=== PATIENT | female | born 1955 ===

== ENCOUNTER 2017-09-18 08:05 | Inpatient (IN) | payer MEDICAID, OTHER ==
[2017-09-18] MEDS ORDERED: Sodium Chloride 0.9% 1,000 ML IV STA (09:36)
--- NOTE | 2017-09-18 09:42 | CARD ---
APPROVED REPORT EKG Measurement Heart [id number] <Conclusion> Normal sinus rhythm Borderline ECG
--- NOTE | 2017-09-18 09:55 | RAD ---
HISTORY: Abd pain COMPARISON: No prior. TECHNIQUE: Chest PA and lateral FINDINGS: LUNGS: No active pulmonary disease. PLEURA: No significant pleural effusion identified. No pneumothorax apparent. CARDIOVASCULAR: Atherosclerotic aortic calcifications. Cardiomediastinal silhouette prominent. OSSEOUS STRUCTURES: Degenerative changes. VISUALIZED UPPER ABDOMEN: Normal. OTHER FINDINGS: None. IMPRESSION: No active disease.
[2017-09-18 10:01] LABS: BASO % 0.5 % (0.0-2.0); EOS # 0.3 K/uL (0.0-0.7); EOS % 3.6 % (0.0-4.0); HEMOGLOBIN 13.8 g/dL (12.0-16.0); MEAN CELL VOLUME 84.6 fl (81.0-99.0); MEAN CORPUSCULAR HEMOGLOBIN 28.1 pg (27.0-31.0); MEAN CORPUSCULAR HGB CONC 33.2 g/dL (33.0-37.0); MEAN PLATELET VOLUME 9.4 fl (7.2-11.7); MONO # 0.5 K/uL (0.0-0.8); MONO % 5.3 % (0.0-10.0); NEUT # 6.2 K/uL (1.8-7.0); NEUT % 68.6 % (50.0-75.0); RBC 4.92 Mil/uL (3.80-5.20); RED CELL DISTRIBUTION WIDTH 14.9 % (11.5-14.5); WHITE BLOOD COUNT 9.1 K/uL (4.8-10.8)
--- NOTE | 2017-09-18 10:02 | ED PDOC ---
HPI: Abdomen Time Seen by Provider: 09/18/17 09:12 Chief Complaint (Nursing): Abdominal Pain Chief Complaint (Provider): Abdominal Pain History Per: Patient History/Exam Limitations: no limitations Additional Complaint(s): 61 year old female with a past medical history of hypertension who presents to the emergency department with a complaint of an upper abdominal pain that was constant last night but as of now intermittent. Associated with nausea and 2 episodes of vomiting. Denies diarrhea. Of note, patient was seen 22 days ago in this facility, given omeprazole, and said medications did help with the abdominal pain. Past Medical History Reviewed: Historical Data, Nursing Documentation, Vital Signs Vital Signs: Last Vital Signs Temp 98.1 F 09/20/17 08:32 Pulse 63 09/20/17 08:32 Resp 20 09/20/17 08:32 BP 128/74 09/20/17 08:32 Pulse Ox 98 09/20/17 14:10 - Medical History PMH: HTN - Family History Family History: States: Unknown Family Hx - Home Medications Home Medications: Ambulatory Orders Medication Instructions Recorded Losartan [Cozaar] 25 mg PO DAILY 09/18/17 Amoxicillin/Clavulanate [Augmentin 1 tab PO BID #14 tab 09/20/17 875 MG-125 MG] Metronidazole [Flagyl] 500 mg PO TID #21 tablet 09/20/17 Tramadol HCl [Ultram] 50 mg PO Q6 PRN #15 tab 09/20/17 - Allergies Allergies/Adverse Reactions: Allergies Allergy/AdvReac Type Severity Reaction Status Date / Time No Known Allergies Allergy Verified 09/18/17 08:16 Review of Systems ROS Statement: Except As Marked, All Systems Reviewed And Found Negative (As per HPI, otherwise negative) Gastrointestinal: Positive for: Nausea, Vomiting (2 episodes), Abdominal Pain. Negative for: Diarrhea Physical Exam - Reviewed Nursing Documentation Reviewed: Yes Vital Signs Reviewed: Yes - Physical Exam Appears: Positive for: Well, No Acute Distress Head Exam: Positive for: NORMAL INSPECTION Skin: Positive for: Normal Color, Warm, Dry Eye Exam: Positive for: Normal appearance, EOMI, PERRL Cardiovascular/Chest: Positive for: Regular Rate, Rhythm. Negative for: Murmur Respiratory: Positive for: Normal Breath Sounds. Negative for: Accessory Muscle Use, Wheezing, Respiratory Distress Gastrointestinal/Abdominal: Positive for: Bowel Sounds, Soft, Tenderness (Mild epigastric and right epigastric tenderness). Negative for: Normal Exam, Guarding, Rebound Back: Positive for: Normal Inspection. Negative for: L CVA Tenderness, R CVA Tenderness Extremity: Positive for: Normal ROM Neurologic/Psych: Positive for: Alert, manufacturing recruiter II-XII, Oriented (x3) - Laboratory Results Result Diagrams: 09/20/17 05:20 09/20/17 05:20 - ECG O2 Sat by Pulse Oximetry: 98 (RA) Pulse Ox Interpretation: Normal Medical Decision Making Medical Decision Making: Time: 945 Initial Impression: Abdominal pain Initial Plan: CMP Lipase Urine DIP CBC w. diff PTT & Prothrombin Morphine 2 mg IV Sodium Chloride 100 mls/hr IV Zofran 4 mg IV Urinalysis Chest x-ray Abdomen Limited US Reevaluation Time: 953 --Chest x-ray FINDINGS: LUNGS: No active pulmonary disease. PLEURA: No significant pleural effusion identified. No pneumothorax apparent. CARDIOVASCULAR: Atherosclerotic aortic calcifications. Cardiomediastinal silhouette prominent. OSSEOUS STRUCTURES: Degenerative changes. VISUALIZED UPPER ABDOMEN: Normal. OTHER FINDINGS: None. IMPRESSION: No active disease. Time: 1030 --Abd US FINDINGS: LIVER: Measures 16.6 cm in length. Increased echogenicity of the liver parenchyma. No mass. No intrahepatic bile duct dilatation. GALLBLADDER: Cholelithiasis with gallbladder wall thickening/edema. Sonographic Flores's sign was not elicited. COMMON BILE DUCT: Measures 5 mm. No stones. No dilatation. PANCREAS: Unremarkable as visualized. No mass. No ductal dilatation. RIGHT KIDNEY: Measures 10.7 x 5.4 x 4.0 cm in length. Normal echogenicity. No calculus, mass, or hydronephrosis. AORTA: No aneurysmal dilatation. IVC: Unremarkable. OTHER FINDINGS: None . IMPRESSION: Cholelithiasis with gallbladder wall thickening/edema. Sonographic Flores's sign was not elicited. Findings are equivocal for acute cholecystitis. Nuclear medicine HIDA scan can be obtained for further evaluation as clinically warranted. Hepatic steatosis. Time: 1044 --Case discussed with surgical services director --Biliary Scan ordered Time: 1500 --Patient is transferred to Dr. Lyle BECKMAN. --Pending HIDA results and reassessment. Scribe Attestation: Documented by Tamiko Pratt, acting as a scribe for Evi Salvador MD. Provider Scribe Attestation: All medical record entries made by the Scribe were at my direction and personally dictated by me. I have reviewed the chart and agree that the record accurately reflects my personal performance of the history, physical exam, medical decision making, and the department course for this patient. I have also personally directed, reviewed, and agree with the discharge instructions and disposition. Disposition - Clinical Impression Clinical Impression: Acute cholecystitis - Patient ED Disposition Is Patient to be Admitted: No - Disposition Disposition: Transfer of Care (Dr. Alvarenga) Disposition Time: 15:00 Condition: STABLE
[2017-09-18 10:09] LABS: ALT/SGPT 29 U/L (9-52); AST/SGOT 18 U/L (14-36); BLOOD UREA NITROGEN 17 mg/dl (7-17); CALCIUM 9.5 mg/dL (8.4-10.2); GFR AFRICAN-AMERICAN > 60; GFR NON-AFRICAN AMERICAN 50; LIPASE 59 U/L (23-300)
[2017-09-18 10:14] LABS: PARTIAL THROMBOPLASTIN TIME 32.1 Seconds (25.6-37.1); PROTHROMBIN TIME 10.7 Seconds (9.8-13.1)
--- NOTE | 2017-09-18 10:31 | US ---
HISTORY: Epigastric/RUQ pain COMPARISON: None. TECHNIQUE: Sonographic evaluation of the right upper quadrant of the abdomen. FINDINGS: LIVER: Measures 16.6 cm in length. Increased echogenicity of the liver parenchyma. No mass. No intrahepatic bile duct dilatation. GALLBLADDER: Cholelithiasis with gallbladder wall thickening/edema. Sonographic Flores's sign was not elicited. COMMON BILE DUCT: Measures 5 mm. No stones. No dilatation. PANCREAS: Unremarkable as visualized. No mass. No ductal dilatation. RIGHT KIDNEY: Measures 10.7 x 5.4 x 4.0 cm in length. Normal echogenicity. No calculus, mass, or hydronephrosis. AORTA: No aneurysmal dilatation. IVC: Unremarkable. OTHER FINDINGS: None . IMPRESSION: Cholelithiasis with gallbladder wall thickening/edema. Sonographic Flores's sign was not elicited. Findings are equivocal for acute cholecystitis. Nuclear medicine HIDA scan can be obtained for further evaluation as clinically warranted. Hepatic steatosis.
[2017-09-18 11:46] LABS: URINE BILIRUBIN NEGATIVE (NEGATIVE); URINE BLOOD NEGATIVE (NEGATIVE); URINE CLARITY CLEAR (Clear); URINE COLOR YELLOW (YELLOW); URINE GLUCOSE (UA) NEG (Normal); URINE LEUKOCYTE ESTERASE NEG Leu/uL (Negative); URINE PROTEIN NEGATIVE (NEGATIVE); URINE UROBILINOGEN 0.2-1.0 mg/dL (0.2-1.0)
--- NOTE | 2017-09-18 13:02 | CP.PCM.CON ---
<Gavin Mosher - Last Filed: 09/18/17 12:59> History of Present Illness - History of Present Illness History of Present Illness: General Surgery Consult for Dr. Avery This is a 61F with a PMH of HTN and a PSH of hysterectomy due to fibroids. She presents with one week of postprandial epigastric abdominal pain. She reports yellow emesis at home however denies any bowel changes or fevers. This week is the first time she has had symptoms like this is in the past. She also reports a ventral hernia which she has had since her hysterectomy. She reports that it is occasionally tender. In the ED pt had an US which was significant for GB stones with GB wall edema. PMH: HTN PSH: Hysterectomy ALL: NKDA Social: Denies Tobacco, ETOH, Drugs Review of Systems - Review of Systems All systems: reviewed and no additional remarkable complaints except - Gastrointestinal Gastrointestinal: Nausea, Vomiting. absent: Coffee Ground Emesis, Dysphagia, Heartburn, Hematochezia, Loose Stools, Melena Past Patient History - Past Social History Smoking Status: Never Smoked - CARDIAC Hx Hypertension: Yes - PSYCHIATRIC Hx Substance Use: No - SURGICAL HISTORY Hx Hysterectomy: Yes - ANESTHESIA Hx Anesthesia: Yes Hx Anesthesia Reactions: No Meds Allergies/Adverse Reactions: Allergies Allergy/AdvReac Type Severity Reaction Status Date / Time No Known Allergies Allergy Verified 09/18/17 08:16 - Medications Medications: Current Medications Sodium Chloride (Sodium Chloride 0.9%) 1,000 mls @ 100 mls/hr IV .Q10H STA Stop: 09/18/17 19:35 Last Admin: 09/18/17 10:32 Dose: 100 mls/hr Physical Exam - Constitutional Appears: Non-toxic, Toxic - Head Exam Head Exam: ATRAUMATIC, NORMOCEPHALIC - Eye Exam Eye Exam: EOMI, Normal appearance - ENT Exam ENT Exam: Mucous Membranes Moist, Normal Exam - Respiratory Exam Respiratory Exam: NORMAL BREATHING PATTERN - Cardiovascular Exam Cardiovascular Exam: +S1, +S2 - GI/Abdominal Exam GI & Abdominal Exam: Soft. absent: Firm, Guarding, Hernia, Rebound, Rigid, Tenderness - Neurological Exam Neurological exam: Alert, CN II-XII Intact, Normal Gait, Oriented x3 - Skin Skin Exam: Dry, Intact Results - Vital Signs Recent Vital Signs: Last Vital Signs Temp 97.9 F 09/18/17 08:16 Pulse 90 09/18/17 08:16 Resp 20 09/18/17 08:16 BP 150/89 09/18/17 08:16 Pulse Ox 98 09/18/17 11:24 - Labs Result Diagrams: 09/18/17 09:46 09/18/17 09:46 Labs: Laboratory Results - last 24 hr 09/18/17 09/18/17 09/18/17 09:46 09:46 09:46 WBC 9.1 RBC 4.92 Hgb 13.8 Hct 41.6 MCV 84.6 MCH 28.1 MCHC 33.2 RDW 14.9 H Plt Count 202 MPV 9.4 Neut % (Auto) 68.6 Lymph % (Auto) 22.0 [place] % (Auto) 5.3 Eos % (Auto) 3.6 Baso % (Auto) 0.5 Neut # (Auto) 6.2 Lymph # (Auto) 2.0 [place] # (Auto) 0.5 Eos # (Auto) 0.3 Baso # (Auto) 0.0 PT 10.7 INR 1.0 APTT 32.1 Sodium 145 Potassium 4.6 Chloride 101 Carbon Dioxide 27 Anion Gap 22 H BUN 17 Creatinine 1.1 Est GFR ( Amer) > 60 Est GFR (Non-Af Amer) 50 Random Glucose 135 H Calcium 9.5 Total Bilirubin 1.1 AST 18 ALT 29 Alkaline Phosphatase 69 Total Protein 7.8 Albumin 4.0 Globulin 3.9 Albumin/Globulin Ratio 1.0 Lipase 59 Urine Color Urine Clarity Urine pH Ur Specific [place] Urine Protein Urine Glucose (UA) Urine Ketones Urine Blood Urine Nitrate Urine Bilirubin Urine Urobilinogen Ur Leukocyte Esterase Urine RBC (Auto) Urine Microscopic WBC 09/18/17 11:35 WBC RBC Hgb Hct MCV MCH MCHC RDW Plt Count MPV Neut % (Auto) Lymph % (Auto) [place] % (Auto) Eos % (Auto) Baso % (Auto) Neut # (Auto) Lymph # (Auto) [place] # (Auto) Eos # (Auto) Baso # (Auto) PT INR APTT Sodium Potassium Chloride Carbon Dioxide Anion Gap BUN Creatinine Est GFR ( Amer) Est GFR (Non-Af Amer) Random Glucose Calcium Total Bilirubin AST ALT Alkaline Phosphatase Total Protein Albumin Globulin Albumin/Globulin Ratio Lipase Urine Color Yellow Urine Clarity Clear Urine pH 7.0 Ur Specific [place] 1.010 Urine Protein Negative Urine Glucose (UA) Neg Urine Ketones Negative Urine Blood Negative Urine Nitrate Negative Urine Bilirubin Negative Urine Urobilinogen 0.2-1.0 Ur Leukocyte Esterase Neg Urine RBC (Auto) 1 Urine Microscopic WBC < 1 Assessment & Plan - Assessment and Plan (Free Text) Assessment: 61F with abdominal pain and cholelithiasis possible cholecystitis NPO IVF F/U HIDA ABX Serial abdominal exams D/W Dr. Bennie Mosher PGY2 <Kalpesh Roberts - Last Filed: 09/19/17 13:24> History of Present Illness - History of Present Illness History of Present Illness: Patient was seen and examined at the bedside. Agree with resident's note above. Meds - Medications Medications: Current Medications Piperacillin Sod/Tazobactam (Sod 3.375 gm/ Sodium Chloride) 100 mls @ 100 mls/ hr IVPB Q6 DAYNA PRN Reason: Protocol Last Admin: 09/19/17 09:28 Dose: 100 mls/hr Lactated Ringer's (Lactated Ringer's) 1,000 mls @ 125 mls/hr IV .Q8H [facility] Stop: 09/20/17 21:46 Last Admin: 09/19/17 09:28 Dose: 125 mls/hr Losartan Potassium (Cozaar) 25 mg PO DAILY [facility] Last Admin: 09/19/17 09:27 Dose: Not Given Morphine Sulfate (Morphine) 1 mg IVP Q4 PRN PRN Reason: Pain, moderate (4-7) Morphine Sulfate (Morphine) 2 mg IVP Q4 PRN PRN Reason: Pain, severe (8-10) Ondansetron HCl (Zofran Inj) 4 mg IVP Q6 PRN PRN Reason: Nausea/Vomiting Results - Vital Signs Recent Vital Signs: Last Vital Signs Temp 98.5 F 09/19/17 07:53 Pulse 75 09/19/17 07:53 Resp 20 09/19/17 07:53 BP 136/82 09/19/17 07:53 Pulse Ox 95 09/19/17 07:53 - Labs Result Diagrams: 09/19/17 07:00 09/19/17 07:00 Labs: Laboratory Results - last 24 hr 09/19/17 09/19/17 09/19/17 07:00 07:00 07:00 WBC 8.1 RBC 4.85 Hgb 13.7 Hct 41.0 MCV 84.5 MCH 28.2 MCHC 33.3 RDW 14.8 H Plt Count 198 Sodium 145 Potassium 4.8 Chloride 103 Carbon Dioxide 31 H Anion Gap 16 BUN 11 Creatinine 1.3 H Est GFR ( Amer) 50 Est GFR (Non-Af Amer) 42 Random Glucose 133 H Calcium 9.4 Phosphorus 5.0 H Magnesium 2.1 Total Bilirubin 2.2 H AST 23 ALT 31 Alkaline Phosphatase 61 Total Protein 7.5 Albumin 3.8 Globulin 3.7 Albumin/Globulin Ratio 1.0 Blood Type O POSITIVE Blood Type Confirm Antibody Screen Negative BBK History Checked No verified bt 09/19/17 08:30 WBC RBC Hgb Hct MCV MCH MCHC RDW Plt Count Sodium Potassium Chloride Carbon Dioxide Anion Gap BUN Creatinine Est GFR ( Amer) Est GFR (Non-Af Amer) Random Glucose Calcium Phosphorus Magnesium Total Bilirubin AST ALT Alkaline Phosphatase Total Protein Albumin Globulin Albumin/Globulin Ratio Blood Type Blood Type Confirm O POSITIVE Antibody Screen BBK History Checked
--- NOTE | 2017-09-18 15:05 | ED PDOC ---
- Laboratory Results Result Diagrams: 09/18/17 09:46 09/18/17 09:46 - ECG O2 Sat by Pulse Oximetry: 98 (RA) Pulse Ox Interpretation: Normal Medical Decision Making Medical Decision Making: Time: 1500 --Patient endorsed from Dr. Salvador to me. --Pending HIDA results and reassessment. Time: 1601 --Body Scan Nuclear Medicine FINDINGS: LIVER: Timely and homogenous uptake. COMMON BILE DUCT: identified at 5 mins. GALLBLADDER: Not identified at 60 mins. Delayed imaging was not felt to be beneficial, radionuclide was barely visible in the liver most identified in the common bile duct and small bowel. SMALL BOWEL: Identified at 10 mins. IMPRESSION: Positive Hepatobiliary Scan. The cystic duct is occluded presumptive evidence of acute cholecystitis. Findings are consistent with recent abdominal ultrasound. . Time: 1635 --Discussed HIDA findings with director surgical who said will consult Dr. Avery --Surgery Consult Ordered with Dr. Jerald Avery (surgical attending) --Admission to hospitalist --Blood Culture --Zosyn 3.375 gm IV Time: 1649 --Spoke to Dr. Avery and now hospitalist will admit patient. Scribe Attestation: Documented by Tamiko Pratt, acting as a scribe for Bipin Alvarenga MD. Provider Scribe Attestation: All medical record entries made by the Scribe were at my direction and personally dictated by me. I have reviewed the chart and agree that the record accurately reflects my personal performance of the history, physical exam, medical decision making, and the department course for this patient. I have also personally directed, reviewed, and agree with the discharge instructions and disposition. Disposition Discussed With : Jerald Avery Doctor Will See Patient In The: Hospital Counseled Patient/Family Regarding: Studies Performed - Clinical Impression Clinical Impression: Acute cholecystitis - POA Present On Arrival: None - Disposition Disposition: Admitted as In-Patient Disposition Time: 16:45 Condition: FAIR
--- NOTE | 2017-09-18 16:02 | NM ---
PROCEDURE: Nuclear Medicine Hepatobiliary Scan HISTORY: Epigastric/RUQ pain, vomiting COMPARISON: September 18, 2017. Abdominal ultrasound TECHNIQUE: 5.9 mCi of technetium 99m Mebrofenin was administered intravenously. Planar images of the abdomen were obtained at 5 min intervals to 60 mins. Delayed images were also obtained. FINDINGS: LIVER: Timely and homogenous uptake. COMMON BILE DUCT: identified at 5 mins. GALLBLADDER: Not identified at 60 mins. Delayed imaging was not felt to be beneficial, radionuclide was barely visible in the liver most identified in the common bile duct and small bowel. SMALL BOWEL: Identified at 10 mins. IMPRESSION: Positive Hepatobiliary Scan. The cystic duct is occluded presumptive evidence of acute cholecystitis. Findings are consistent with recent abdominal ultrasound. .
[2017-09-18] MEDS ORDERED: Piperacillin/Tazobact 3.375 GM in Sodium Chloride 0.9% 100 ML IVPB STA (16:35)
--- NOTE | 2017-09-18 17:46 | CP.PCM.HP ---
History of Present Illness - History of Present Illness History of Present Illness: This is a 61 year old female with a past medical history of hypertension for which she takes losartan, obesity, with no other reported medical problems, who presents to the ED with the complaint of progressively worsening right upper quadrant pain beginning a week ago, was mild but today reports severe pain. The patient states the pain is crampy, sharp, and constant. The pain is associated with several episodes of nonbilious nonbloody emesis for one day. In the ED,the patient was found on US abdomen to have cholelithiasis with gallbladder wall thickening and edema concerning for acute cholecystitis along with hepatic steatosis. Dr. Avery was pages for general surgery consultation; a HIDA scan was ordered which revealed nonvisualization of the gallbladder at 60 minutes; concluded as positive for acute cholecystitis. The patient is planned to have laparascopic cholecystectomy tomorrow morning. Patient denies chest pain, shortness of breath, fevers, chills, diarrhea, headache. All of the patient's and/or family's questions were answered at the bedside. Present on Admission - Present on Admission Any Indicators Present on Admission: No History of DVT/PE: No History of Uncontrolled Diabetes: No Review of Systems - Review of Systems Review of Systems: A 12 point review of systems was conducted and found to be normal other than what was mentioned in the HPI. Past Patient History - Infectious Disease Hx of Infectious Diseases: None - Past Social History Smoking Status: Never Smoked - CARDIAC Hx Hypertension: Yes - PSYCHIATRIC Hx Substance Use: No - SURGICAL HISTORY Hx Hysterectomy: Yes - ANESTHESIA Hx Anesthesia: Yes Hx Anesthesia Reactions: No Meds Allergies/Adverse Reactions: Allergies Allergy/AdvReac Type Severity Reaction Status Date / Time No Known Allergies Allergy Verified 09/18/17 08:16 Physical Exam - Additional Findings Additional findings: Physical exam: Constitutional- cooperative, awake, alert Head- NCAT, PERRL Eye- PERRL, EOMI ENT- normal exam, MMM. Neck- normal inspection, supple, no JVD Respiratory- CTAB, no wheezes rales rhonchi Cardiovascular- RRR, +S1, +S2 no MRG GI/Abdominal- tenderness to palpation of RUQ, obese, nondistended, normal bowel sounds, soft, no mass, no hsm Skin- warm, dry Extremities Exam- normal capillary refill, normal inspection Neurological Exam- alert, awake, oriented Psych- normal mood, normal affect Results - Vital Signs Recent Vital Signs: Last Vital Signs Temp 97.9 F 09/18/17 08:16 Pulse 90 09/18/17 08:16 Resp 20 09/18/17 08:16 BP 150/89 09/18/17 08:16 Pulse Ox 98 09/18/17 16:49 - Labs Result Diagrams: 09/18/17 09:46 09/18/17 09:46 Labs: Laboratory Results - last 24 hr 09/18/17 09/18/17 09/18/17 09:46 09:46 09:46 WBC 9.1 RBC 4.92 Hgb 13.8 Hct 41.6 MCV 84.6 MCH 28.1 MCHC 33.2 RDW 14.9 H Plt Count 202 MPV 9.4 Neut % (Auto) 68.6 Lymph % (Auto) 22.0 [place] % (Auto) 5.3 Eos % (Auto) 3.6 Baso % (Auto) 0.5 Neut # (Auto) 6.2 Lymph # (Auto) 2.0 [place] # (Auto) 0.5 Eos # (Auto) 0.3 Baso # (Auto) 0.0 PT 10.7 INR 1.0 APTT 32.1 Sodium 145 Potassium 4.6 Chloride 101 Carbon Dioxide 27 Anion Gap 22 H BUN 17 Creatinine 1.1 Est GFR ( Amer) > 60 Est GFR (Non-Af Amer) 50 Random Glucose 135 H Calcium 9.5 Total Bilirubin 1.1 AST 18 ALT 29 Alkaline Phosphatase 69 Total Protein 7.8 Albumin 4.0 Globulin 3.9 Albumin/Globulin Ratio 1.0 Lipase 59 Urine Color Urine Clarity Urine pH Ur Specific [place] Urine Protein Urine Glucose (UA) Urine Ketones Urine Blood Urine Nitrate Urine Bilirubin Urine Urobilinogen Ur Leukocyte Esterase Urine RBC (Auto) Urine Microscopic WBC 09/18/17 11:35 WBC RBC Hgb Hct MCV MCH MCHC RDW Plt Count MPV Neut % (Auto) Lymph % (Auto) [place] % (Auto) Eos % (Auto) Baso % (Auto) Neut # (Auto) Lymph # (Auto) [place] # (Auto) Eos # (Auto) Baso # (Auto) PT INR APTT Sodium Potassium Chloride Carbon Dioxide Anion Gap BUN Creatinine Est GFR ( Amer) Est GFR (Non-Af Amer) Random Glucose Calcium Total Bilirubin AST ALT Alkaline Phosphatase Total Protein Albumin Globulin Albumin/Globulin Ratio Lipase Urine Color Yellow Urine Clarity Clear Urine pH 7.0 Ur Specific [place] 1.010 Urine Protein Negative Urine Glucose (UA) Neg Urine Ketones Negative Urine Blood Negative Urine Nitrate Negative Urine Bilirubin Negative Urine Urobilinogen 0.2-1.0 Ur Leukocyte Esterase Neg Urine RBC (Auto) 1 Urine Microscopic WBC < 1 Assessment & Plan - Assessment and Plan (Free Text) Plan: ASSESSMENT/PLAN This is a 61 yo female with hx of hypertension and obesity admitted for acute cholecystitis 1) Acute cholecystitis - Place on med/surg observation - Consultation with Dr. Avery for general surgery- for OR in AM - Morphine sliding scale for pain - Zosyn 3.375 mg IVPB q 8 hours for empiric antibiotic coverage - IV fluids - Clear liquid diet then NPO at midnight for surgery - EKG unremarkable - CXR shows atherosclerotic aortic calcifications but no evidence of active cardipulmonary disease - Laboratory workup unremarkable other than minimally elevated glucose (135) - Patient is at acceptable risk for laparascopic vs open cholecystectomy and may proceed with surgery from a medical standpoint 2) Essential hypertension - Monitor for now - Restart losartan after surgery 3) Obesity - Chronic 4) DVT prophylaxis - SCDs
[2017-09-18] MEDS ORDERED: Piperacillin/Tazobact 3.375 gm Inj IVPB ONE (18:37)
[2017-09-18] MEDS ORDERED: Sodium Chloride 0.9% 1,000 ML IV SCH (19:00)
[2017-09-18] MEDS: Lactated Ringer's 1,000 ML IV SCH (21:42)
[2017-09-18] MEDS: Piperacillin/Tazobact 3.375 GM in Sodium Chloride 0.9% 100 ML IVPB SCH (21:42)
[2017-09-19] MEDS: Piperacillin/Tazobact 3.375 GM in Sodium Chloride 0.9% 100 ML IVPB SCH ×4 (03:49→22:09)
[2017-09-19 07:29] LABS: HEMOGLOBIN 13.7 g/dL (12.0-16.0); MEAN CELL VOLUME 84.5 fl (81.0-99.0); MEAN CORPUSCULAR HEMOGLOBIN 28.2 pg (27.0-31.0); MEAN CORPUSCULAR HGB CONC 33.3 g/dL (33.0-37.0); RBC 4.85 Mil/uL (3.80-5.20); RED CELL DISTRIBUTION WIDTH 14.8 % (11.5-14.5); WHITE BLOOD COUNT 8.1 K/uL (4.8-10.8)
[2017-09-19 07:58] LABS: ALBUMIN 3.8 g/dL (3.5-5.0); CALCIUM 9.4 mg/dL (8.4-10.2)
[2017-09-19] MEDS ORDERED: Pneumococcal 23-Valent Vaccine IM ONE (09:00)
[2017-09-19] MEDS: Lactated Ringer's 1,000 ML IV SCH ×3 (09:28→21:45)
--- NOTE | 2017-09-19 11:30 | CP.PCM.PN ---
Subjective - Date & Time of Evaluation Date of Evaluation: 09/19/17 Time of Evaluation: 10:00 - Subjective Subjective: Patient seen and examined. c/o mild ruq abdominal tenderness. Denies chest pain , nausea, vomiting, diarrhea, lethargy, weakness. NPO for possible OR today. Objective - Vital Signs/Intake and Output Vital Signs (last 24 hours): Temp Pulse Resp BP Pulse Ox 98.5 F 75 20 136/82 95 09/19/17 07:53 09/19/17 07:53 09/19/17 07:53 09/19/17 07:53 09/19/17 07:53 - Medications Medications: Current Medications Piperacillin Sod/Tazobactam (Sod 3.375 gm/ Sodium Chloride) 100 mls @ 100 mls/ hr IVPB Q6 DAYNA PRN Reason: Protocol Last Admin: 09/19/17 09:28 Dose: 100 mls/hr Lactated Ringer's (Lactated Ringer's) 1,000 mls @ 125 mls/hr IV .Q8H [facility] Stop: 09/20/17 21:46 Last Admin: 09/19/17 09:28 Dose: 125 mls/hr Losartan Potassium (Cozaar) 25 mg PO DAILY [facility] Last Admin: 09/19/17 09:27 Dose: Not Given Morphine Sulfate (Morphine) 1 mg IVP Q4 PRN PRN Reason: Pain, moderate (4-7) Morphine Sulfate (Morphine) 2 mg IVP Q4 PRN PRN Reason: Pain, severe (8-10) Ondansetron HCl (Zofran Inj) 4 mg IVP Q6 PRN PRN Reason: Nausea/Vomiting - Labs Labs: 09/19/17 07:00 09/19/17 07:00 PT 10.7 Seconds (9.8-13.1) 09/18/17 09:46 INR 1.0 (0.9-1.2) 09/18/17 09:46 APTT 32.1 Seconds (25.6-37.1) 09/18/17 09:46 - Additional Findings Additional findings: Physical exam: Constitutional- cooperative, awake, alert Head- NCAT, PERRL Eye- PERRL, EOMI ENT- normal exam, MMM. Neck- normal inspection, supple, no JVD Respiratory- CTAB, no wheezes rales rhonchi Cardiovascular- RRR, +S1, +S2 no MRG GI/Abdominal- tenderness to palpation of RUQ, obese, nondistended, normal bowel sounds, soft, no mass, no hsm Skin- warm, dry Extremities Exam- normal capillary refill, normal inspection Neurological Exam- alert, awake, oriented Psych- normal mood, normal affect Assessment and Plan - Assessment and Plan (Free Text) Plan: ASSESSMENT/PLAN This is a 61 yo female with hx of hypertension and obesity admitted for acute cholecystitis 1) Acute cholecystitis - Continue med/surg observation - Consultation with Dr. Avery for general surgery- NPO. Surgery wants MRCP done prior to procedure to make sure ERCP does not need to be performed as the total bilirubin increased from 1.1 to 2.2. This is pending for now. - Morphine sliding scale for pain - Zosyn 3.375 mg IVPB q 8 hours for empiric antibiotic coverage - IV fluids - EKG unremarkable - CXR shows atherosclerotic aortic calcifications but no evidence of active cardipulmonary disease - Laboratory workup unremarkable other than minimally elevated glucose (135) - Patient is at acceptable risk for laparascopic vs open cholecystectomy and may proceed with surgery from a medical standpoint 2) Essential hypertension - Monitor for now - Restart losartan after surgery 3) Obesity - Chronic 4) DVT prophylaxis - SCDs
--- NOTE | 2017-09-19 13:03 | CP.PCM.PN ---
<Diego Carpenter - Last Filed: 09/19/17 13:00> Subjective - Date & Time of Evaluation Date of Evaluation: 09/19/17 Time of Evaluation: 06:55 - Subjective Subjective: SURGERY NOTE FOR DR. PORTILLO/CHAVO 61F seen and examined at bedside. No acute events overnight, Patient states she does not have pain, denies nausea, vomiting, fevers or chills. Objective - Vital Signs/Intake and Output Vital Signs (last 24 hours): Temp Pulse Resp BP Pulse Ox 98.5 F 75 20 136/82 95 09/19/17 07:53 09/19/17 07:53 09/19/17 07:53 09/19/17 07:53 09/19/17 07:53 - Medications Medications: Current Medications Piperacillin Sod/Tazobactam (Sod 3.375 gm/ Sodium Chloride) 100 mls @ 100 mls/ hr IVPB Q6 DAYNA PRN Reason: Protocol Last Admin: 09/19/17 09:28 Dose: 100 mls/hr Lactated Ringer's (Lactated Ringer's) 1,000 mls @ 125 mls/hr IV .Q8H [facility] Stop: 09/20/17 21:46 Last Admin: 09/19/17 09:28 Dose: 125 mls/hr Losartan Potassium (Cozaar) 25 mg PO DAILY [facility] Last Admin: 09/19/17 09:27 Dose: Not Given Morphine Sulfate (Morphine) 1 mg IVP Q4 PRN PRN Reason: Pain, moderate (4-7) Morphine Sulfate (Morphine) 2 mg IVP Q4 PRN PRN Reason: Pain, severe (8-10) Ondansetron HCl (Zofran Inj) 4 mg IVP Q6 PRN PRN Reason: Nausea/Vomiting - Labs Labs: 09/19/17 07:00 09/19/17 07:00 PT 10.7 Seconds (9.8-13.1) 09/18/17 09:46 INR 1.0 (0.9-1.2) 09/18/17 09:46 APTT 32.1 Seconds (25.6-37.1) 09/18/17 09:46 - Constitutional Appears: Other (obese) - ENT Exam ENT Exam: Mucous Membranes Moist - Respiratory Exam Respiratory Exam: Clear to Ausculation Bilateral, NORMAL BREATHING PATTERN - Cardiovascular Exam Cardiovascular Exam: REGULAR RHYTHM, +S1, +S2 - GI/Abdominal Exam GI & Abdominal Exam: Soft. absent: Distended, Firm, Guarding, Rigid, Tenderness , Rebound - Neurological Exam Neurological Exam: Alert, Awake - Psychiatric Exam Psychiatric exam: Normal Affect, Normal Mood - Skin Skin Exam: Dry, Intact, Normal Color, Warm Assessment and Plan - Assessment and Plan (Free Text) Assessment: 61F with abdominal pain that has resolved, likely from gallbladder source Plan: Pain control Patient currently asymptomatic Advance diet as tolerated Further recs discuss with Attending John Carpenter PGY2 <Kalpesh Roberts - Last Filed: 09/19/17 13:20> Subjective - Date & Time of Evaluation Time of Evaluation: 13:00 - Subjective Subjective: Patient was seen and examined at the bedside. Agree with resident's note above. Objective - Vital Signs/Intake and Output Vital Signs (last 24 hours): Temp Pulse Resp BP Pulse Ox 98.5 F 75 20 136/82 95 09/19/17 07:53 09/19/17 07:53 09/19/17 07:53 09/19/17 07:53 09/19/17 07:53 - Medications Medications: Current Medications Piperacillin Sod/Tazobactam (Sod 3.375 gm/ Sodium Chloride) 100 mls @ 100 mls/ hr IVPB Q6 DAYNA PRN Reason: Protocol Last Admin: 09/19/17 09:28 Dose: 100 mls/hr Lactated Ringer's (Lactated Ringer's) 1,000 mls @ 125 mls/hr IV .Q8H [facility] Stop: 09/20/17 21:46 Last Admin: 09/19/17 09:28 Dose: 125 mls/hr Losartan Potassium (Cozaar) 25 mg PO DAILY [facility] Last Admin: 09/19/17 09:27 Dose: Not Given Morphine Sulfate (Morphine) 1 mg IVP Q4 PRN PRN Reason: Pain, moderate (4-7) Morphine Sulfate (Morphine) 2 mg IVP Q4 PRN PRN Reason: Pain, severe (8-10) Ondansetron HCl (Zofran Inj) 4 mg IVP Q6 PRN PRN Reason: Nausea/Vomiting - Labs Labs: 09/19/17 07:00 09/19/17 07:00 PT 10.7 Seconds (9.8-13.1) 09/18/17 09:46 INR 1.0 (0.9-1.2) 09/18/17 09:46 APTT 32.1 Seconds (25.6-37.1) 09/18/17 09:46 Assessment and Plan - Assessment and Plan (Free Text) Plan: - Keep NPO - IV fluids - pain control - Continue Zosyn - MRCP to r/o choledocholithiasis - Repeat labs in am - Will follow
[2017-09-19] MEDS ORDERED: Gadodiamide 287 MG/ML VIAL (15ML) IV ONE (15:02)
[2017-09-19] MEDS ORDERED: Sodium Chloride 0.9% 100 ML ONE (15:02)
--- NOTE | 2017-09-19 17:00 | MRI ---
MRI abdomen without/with IV contrast MRCP Indication: Elevated T bili Technique: Multiplanar, multi sequence magnetic resonance images of the abdomen were obtained without and with the administration of intravenous gadolinium using a multi phase abdomen protocol. Rotating maximum intensity projection images of the biliary system were generated. A total of 1131 images submitted for review Comparison: Limited abdominal ultrasound performed 09/18/17 Findings: Hepatic steatosis with regions of suspected focal fatty sparing. Gallbladder wall thickening and pericholecystic edema. Cholelithiasis. There is no intrahepatic biliary ductal dilatation. The common bile duct appears within normal limits in caliber and tapers distally. The pancreatic duct appears within normal limits of caliber. No filling defects are seen in the common bile duct or pancreatic duct. The spleen, pancreas, and adrenal glands appear unremarkable. The kidneys enhance symmetrically. No obstructing calculus or hydronephrosis identified. Sub cm T2 hyperintensities/T1 hypointensities bilaterally, statistically likely cysts. 1.5 cm right renal T2 hyperintense T1 hypo intense nonenhancing lesion compatible with a cyst. No bulky adenopathy identified. Limited views of the inferior thorax appear unremarkable. Small hiatal hernia. Scoliosis. Impression: Hepatic steatosis with regions of suspected focal fatty sparing. Gallbladder wall thickening, pericholecystic edema, and cholelithiasis. Constellation of findings appear consistent with cholecystitis. Correlate clinically. Sub cm T2 hyperintensities/T1 hypointensities bilaterally, statistically likely cysts. 1.5 cm right renal T2 hyperintense T1 hypo intense nonenhancing lesion compatible with a cyst. Additional findings as above.
[2017-09-20 00:22] VITALS: TEMP 98.1
[2017-09-20] MEDS: Piperacillin/Tazobact 3.375 GM in Sodium Chloride 0.9% 100 ML IVPB SCH ×2 (04:15→09:18)
[2017-09-20] MEDS: Lactated Ringer's 1,000 ML IV SCH ×2 (04:16→05:45)
--- NOTE | 2017-09-20 05:37 | CP.PCM.PN ---
Subjective - Date & Time of Evaluation Date of Evaluation: 09/20/17 Time of Evaluation: 06:20 - Subjective Subjective: General Surgery Note for Dr. Avery Patient seen and examined at bedside. No acute events overnight. Patient denies pain. She is tolerating diet. Patient also denies nausea/vomting and fever/ chills. Patient has no complaints this morning. Objective - Vital Signs/Intake and Output Vital Signs (last 24 hours): Temp Pulse Resp BP Pulse Ox 98.1 F 70 19 153/84 H 96 09/20/17 00:15 09/20/17 00:15 09/20/17 00:15 09/20/17 00:15 09/20/17 00:15 - Medications Medications: Current Medications Piperacillin Sod/Tazobactam (Sod 3.375 gm/ Sodium Chloride) 100 mls @ 100 mls/ hr IVPB Q6 DAYNA PRN Reason: Protocol Last Admin: 09/20/17 04:15 Dose: 100 mls/hr Lactated Ringer's (Lactated Ringer's) 1,000 mls @ 125 mls/hr IV .Q8H [facility] Stop: 09/20/17 21:46 Last Admin: 09/20/17 04:16 Dose: 125 mls/hr Losartan Potassium (Cozaar) 25 mg PO DAILY [facility] Last Admin: 09/19/17 16:53 Dose: 25 mg Morphine Sulfate (Morphine) 1 mg IVP Q4 PRN PRN Reason: Pain, moderate (4-7) Morphine Sulfate (Morphine) 2 mg IVP Q4 PRN PRN Reason: Pain, severe (8-10) Ondansetron HCl (Zofran Inj) 4 mg IVP Q6 PRN PRN Reason: Nausea/Vomiting - Labs Labs: 09/19/17 07:00 09/19/17 07:00 PT 10.7 Seconds (9.8-13.1) 09/18/17 09:46 INR 1.0 (0.9-1.2) 09/18/17 09:46 APTT 32.1 Seconds (25.6-37.1) 09/18/17 09:46 - Constitutional Appears: No Acute Distress - Head Exam Head Exam: ATRAUMATIC, NORMOCEPHALIC - Eye Exam Eye Exam: Normal appearance - ENT Exam ENT Exam: Mucous Membranes Moist - Respiratory Exam Respiratory Exam: NORMAL BREATHING PATTERN - Cardiovascular Exam Cardiovascular Exam: REGULAR RHYTHM - GI/Abdominal Exam GI & Abdominal Exam: Soft. absent: Distended, Firm, Guarding, Rigid, Tenderness , Rebound - Extremities Exam Extremities Exam: Normal Capillary Refill - Neurological Exam Neurological Exam: Alert, Awake, Oriented x3 - Psychiatric Exam Psychiatric exam: Normal Affect, Normal Mood - Skin Skin Exam: Dry, Intact, Normal Color, Warm Assessment and Plan - Assessment and Plan (Free Text) Assessment: 61F with abdominal pain that has resolved, likely from gallbladder source MRCP demonstrates GB wall thickening, pericholecystic edema, and cholelithiasis. Normal CBD. No intrahepatic ductal dilation (see full report) Plan: ADAT Analgesics/Anti-emetics PRN IV fluids Continue IV antibiotics Will discuss with Dr. Bennie Bird PGY1
[2017-09-20 07:07] LABS: HEMOGLOBIN 13.6 g/dL (12.0-16.0); MEAN CELL VOLUME 84.1 fl (81.0-99.0); MEAN CORPUSCULAR HEMOGLOBIN 28.4 pg (27.0-31.0); MEAN CORPUSCULAR HGB CONC 33.7 g/dL (33.0-37.0); RBC 4.77 Mil/uL (3.80-5.20); RED CELL DISTRIBUTION WIDTH 14.9 % (11.5-14.5); WHITE BLOOD COUNT 6.6 K/uL (4.8-10.8)
[2017-09-20 07:17] LABS: ALBUMIN 3.8 g/dL (3.5-5.0); CALCIUM 9.6 mg/dL (8.4-10.2)
[2017-09-20 08:32] VITALS: BP 128/74; PULSE 63; RESP 20
--- NOTE | 2017-09-20 13:29 | CARD ---
APPROVED REPORT EXAM: Two-dimensional and M-mode echocardiogram with Doppler and color Doppler. Other Information Quality : GoodRhythm : NSR INDICATION Pre-Op 2D DIMENSIONS IVSd1.02 (0.7-1.1cm)LVDd5.44 (3.9-5.9cm) LVOT Diameter2.18 (1.8-2.4cm)PWd0.73 (0.7-1.1cm) IVSs1.22 (0.8-1.2cm)LVDs3.15 (2.5-4.0cm) FS (%) 42.1 %PWs1.12 (0.8-1.2cm) M-Mode DIMENSIONS Left Atrium (MM)3.28 (2.5-4.0cm)IVSd1.06 (0.7-1.1cm) Aortic Root3.19 (2.2-3.7cm)LVDd5.69 (4.0-5.6cm) Aortic Cusp Exc.1.94 (1.5-2.0cm)PWd1.22 (0.7-1.1cm) IVSs1.41 cmFS (%) 31 % LVDs3.91 (2.0-3.8cm)PWs1.28 cm Mitral Valve MV E Epqxzhum42.9cm/sMV DECEL [id number] A Pybgyojb81.4cm/s MV CLP58liV/A ratio0.9MVA (PHT)2.47cm2 TDI Lateral E' Peak V9.13cm/sMedial E' Peak V7.82cm/sE/Lateral E'6.6 E/Medial E'7.7 LEFT VENTRICLE The left ventricle is normal size. There is normal left ventricular wall thickness. The left ventricular function is normal. The left ventricular ejection fraction is within the normal range. The Ejection Fraction is 60-65%. There is normal LV segmental wall motion. The left ventricular diastolic function is normal. RIGHT VENTRICLE The right ventricle is normal size. There is normal right ventricular wall thickness. The right ventricular systolic function is normal. ATRIA The left atrium size is normal. The right atrium size is normal. AORTIC VALVE The aortic valve is normal in structure. No aortic regurgitation is present. There is no aortic valvular stenosis. MITRAL VALVE The mitral valve is normal in structure. There is no mitral valve stenosis. There is no mitral valve regurgitation noted. TRICUSPID VALVE The tricuspid valve is normal in structure. There is no tricuspid valve regurgitation noted. There is no tricuspid valve stenosis. PULMONIC VALVE The pulmonary valve is normal in structure. There is no pulmonic valvular regurgitation. GREAT VESSELS The aortic root is normal in size. The IVC is normal in size and collapses >50% with inspiration. PERICARDIAL EFFUSION The pericardium appears normal. <Conclusion> The left ventricle is normal size. The left ventricular function is normal. The left ventricular ejection fraction is within the normal range. The Ejection Fraction is 60-65%.
--- NOTE | 2017-09-20 13:56 | CP.PCM.DIS ---
Provider - Provider Date of Admission: 09/18/17 16:48 Attending physician: Hi Montaño DO Consults: Surgery: Dr Avery/Armando Time Spent in preparation of Discharge (in minutes): 30 Diagnosis - Discharge Diagnosis (1) Acute cholecystitis Status: Acute (2) HTN (hypertension) Status: Chronic Hospital Course - Lab Results Lab Results: Micro Results 09/18/17 19:55 Blood-Venous Blood Culture - Preliminary NO GROWTH AFTER 24 HOURS Most Recent Lab Values WBC 6.6 K/uL (4.8-10.8) 09/20/17 05:20 RBC 4.77 Mil/uL (3.80-5.20) 09/20/17 05:20 Hgb 13.6 g/dL (12.0-16.0) 09/20/17 05:20 Hct 40.2 % (34.0-47.0) 09/20/17 05:20 MCV 84.1 fl (81.0-99.0) 09/20/17 05:20 MCH 28.4 pg (27.0-31.0) 09/20/17 05:20 MCHC 33.7 g/dL (33.0-37.0) 09/20/17 05:20 RDW 14.9 % (11.5-14.5) H 09/20/17 05:20 Plt Count 199 K/uL (130-400) 09/20/17 05:20 MPV 9.4 fl (7.2-11.7) 09/18/17 09:46 Neut % (Auto) 68.6 % (50.0-75.0) 09/18/17 09:46 Lymph % (Auto) 22.0 % (20.0-40.0) 09/18/17 09:46 Randall % (Auto) 5.3 % (0.0-10.0) 09/18/17 09:46 Eos % (Auto) 3.6 % (0.0-4.0) 09/18/17 09:46 Baso % (Auto) 0.5 % (0.0-2.0) 09/18/17 09:46 Neut # (Auto) 6.2 K/uL (1.8-7.0) 09/18/17 09:46 Lymph # (Auto) 2.0 K/uL (1.0-4.3) 09/18/17 09:46 Randall # (Auto) 0.5 K/uL (0.0-0.8) 09/18/17 09:46 Eos # (Auto) 0.3 K/uL (0.0-0.7) 09/18/17 09:46 Baso # (Auto) 0.0 K/uL (0.0-0.2) 09/18/17 09:46 PT 10.7 Seconds (9.8-13.1) 09/18/17 09:46 INR 1.0 (0.9-1.2) 09/18/17 09:46 APTT 32.1 Seconds (25.6-37.1) 09/18/17 09:46 Sodium 146 mmol/l (132-148) 09/20/17 05:20 Potassium 4.3 MMOL/L (3.6-5.0) 09/20/17 05:20 Chloride 103 mmol/L (98-107) 09/20/17 05:20 Carbon Dioxide 30 mmol/L (22-30) 09/20/17 05:20 Anion Gap 17 (10-20) 09/20/17 05:20 BUN 11 mg/dl (7-17) 09/20/17 05:20 Creatinine 1.3 mg/dl (0.7-1.2) H 09/20/17 05:20 Est GFR ( Amer) 50 09/20/17 05:20 Est GFR (Non-Af Amer) 42 09/20/17 05:20 Random Glucose 103 mg/dL (65-105) 09/20/17 05:20 Calcium 9.6 mg/dL (8.4-10.2) 09/20/17 05:20 Phosphorus 5.0 mg/dl (2.5-4.5) H 09/19/17 07:00 Magnesium 2.1 MG/DL (1.6-2.3) 09/19/17 07:00 Total Bilirubin 2.1 mg/dl (0.2-1.3) H 09/20/17 05:20 AST 26 U/L (14-36) 09/20/17 05:20 ALT 42 U/L (9-52) 09/20/17 05:20 Alkaline Phosphatase 54 U/L (38-126) 09/20/17 05:20 Total Protein 7.5 G/DL (6.3-8.2) 09/20/17 05:20 Albumin 3.8 g/dL (3.5-5.0) 09/20/17 05:20 Globulin 3.7 gm/dL (2.2-3.9) 09/20/17 05:20 Albumin/Globulin Ratio 1.0 (1.0-2.1) 09/20/17 05:20 Lipase 59 U/L (23-300) 09/18/17 09:46 Urine Color Yellow (YELLOW) 09/18/17 11:35 Urine Clarity Clear (Clear) 09/18/17 11:35 Urine pH 7.0 (5.0-8.0) 09/18/17 11:35 Ur Specific Peck 1.010 (1.003-1.030) 09/18/17 11:35 Urine Protein Negative mg/dL (NEGATIVE) 09/18/17 11:35 Urine Glucose (UA) Neg mg/dL (Normal) 09/18/17 11:35 Urine Ketones Negative mg/dL (NEGATIVE) 09/18/17 11:35 Urine Blood Negative (NEGATIVE) 09/18/17 11:35 Urine Nitrate Negative (NEGATIVE) 09/18/17 11:35 Urine Bilirubin Negative (NEGATIVE) 09/18/17 11:35 Urine Urobilinogen 0.2-1.0 mg/dL (0.2-1.0) 09/18/17 11:35 Ur Leukocyte Esterase Neg Raquel/uL (Negative) 09/18/17 11:35 Urine RBC (Auto) 1 /hpf (0-3) 09/18/17 11:35 Urine Microscopic WBC < 1 /hpf (0-5) 09/18/17 11:35 Blood Type O POSITIVE 09/19/17 07:00 Blood Type Confirm O POSITIVE 09/19/17 08:30 Antibody Screen Negative 09/19/17 07:00 BBK History Checked No verified bt 09/19/17 07:00 - Hospital Course Hospital Course: This is a 61 year old female with a past medical history of hypertension for which she takes losartan, obesity, with no other reported medical problems, who presented to the ED with the complaint of progressively worsening right upper quadrant pain for 1 week. The pain was associated with several episodes of nonbilious nonbloody emesis on day of admission. In the ED,the patient was found on US abdomen to have cholelithiasis with gallbladder wall thickening and edema concerning for acute cholecystitis along with hepatic steatosis. Surgery : Dr. Avery was called for general surgery consultation; a HIDA scan was ordered which revealed nonvisualization of the gallbladder at 60 minutes; concluded as positive for acute cholecystitis. MRCP showed no CBD dilatation., No Choledocholithiasis. Patient's pain resolved. she is afebrile and tolerating Po diet. Discussed case with Surgery : Dr Avery - plan for Lap Chacha next week. Recommended to discharge pt home and he will schedule Lap Chacha as outpatient. 1) Acute cholecystitis - Morphine sliding scale for pain - Zosyn 3.375 mg IVPB q 8 hours for empiric antibiotic coverage - IV fluids - EKG unremarkable - CXR shows atherosclerotic aortic calcifications but no evidence of active cardiopulmonary disease - ECHO: normal LV function and wall motion - Laboratory workup unremarkable other than minimally elevated glucose (135) - Patient is at acceptable risk for laparascopic vs open cholecystectomy and may proceed with surgery from a medical standpoint -Plan for outpt Laparoscopic Cholecystectomy - to be scheduled for next week as discussed with Dr Avery - pt has no pain, no vomiting, no fever, no leukocytosis, tolerating Po diet - will d/c pt home on PO Augmentin and Flagyl - Instructed pt to retrun to ED anytime if pain or fever recurs. 2) Essential hypertension - Monitor for now - Restart losartan 3) Obesity BMI 38 - Chronic 4) DVT prophylaxis - SCDs Discharge Exam - Head Exam Head Exam: ATRAUMATIC, NORMAL INSPECTION, NORMOCEPHALIC - Eye Exam Eye Exam: EOMI, Normal appearance, PERRL Pupil Exam: NORMAL ACCOMODATION - ENT Exam ENT Exam: Mucous Membranes Moist, Normal External Ear Exam - Neck Exam Neck exam: Full Rom - Respiratory Exam Respiratory Exam: NORMAL BREATHING PATTERN. absent: Respiratory Distress - Cardiovascular Exam Cardiovascular Exam: REGULAR RHYTHM, +S1, +S2 - GI/Abdominal Exam GI & Abdominal Exam: Normal Bowel Sounds, Soft. absent: Tenderness - Extremities Exam Extremities exam: full ROM, normal capillary refill, pedal pulses present - Back Exam Back exam: FULL ROM. absent: CVA tenderness (L), CVA tenderness (R) - Neurological Exam Neurological exam: CN II-XII Intact, Normal Gait, Oriented x3, Reflexes Normal - Psychiatric Exam Psychiatric exam: Normal Affect, Normal Mood - Skin Skin Exam: Dry, Normal Color, Warm Discharge Plan - Discharge Medications Prescriptions: Amoxicillin/Clavulanate [Augmentin 875 MG-125 MG] 1 tab PO BID #14 tab Metronidazole [Flagyl] 500 mg PO TID #21 tablet Tramadol HCl [Ultram] 50 mg PO Q6 PRN #15 tab PRN Reason: Pain, Moderate (4-7) - Follow Up Plan Condition: GOOD Disposition: HOME/ ROUTINE Instructions: [place] Diet, Cholecystitis (DC) Additional Instructions: Lap Chacha will be done as outpt Dr Avery's office will call pt on Friday for OR schedule [place] , lowfat diet Return to ED if with fever, or is pain recurs FP clinic appt in 1-2 wks Referrals: [facility] [Outside] Álvaro Avery MD [Staff Provider] -
[2017-09-20 14:11] VITALS: O2SAT 98
== END 2017-09-20 14:50 | disposition home or self-care (01) | DRG 446 ==
LOC: H.ER 08:05 → H.ERHOLD 16:48 → H.MEDSURG1 20:15
PROVIDERS: ADMIT Internal Medicine; ATTEND Internal Medicine
PROC: 3E0234Z Introduction of Serum, Toxoid and Vaccine into Muscle, Percutaneous Approach (ICD-10-PCS; principal; 2017-09-18)
DX: K80.00 Calculus of gallbladder with acute cholecystitis without obstruction (principal); K76.0 Fatty (change of) liver, not elsewhere classified; E66.9 Obesity, unspecified; R73.9 Hyperglycemia, unspecified; Z68.38 Body mass index [BMI] 38.0-38.9, adult; Z90.710 Acquired absence of both cervix and uterus; Z79.899 Other long term (current) drug therapy; R93.2 Abnormal findings on diagnostic imaging of liver and biliary tract; I10 Essential (primary) hypertension; K43.9 Ventral hernia without obstruction or gangrene; Z23 Encounter for immunization

== ENCOUNTER 2017-09-25 14:12 | Inpatient (IN) | payer MEDICAID, OTHER ==
--- NOTE | 2017-09-25 15:33 | ED PDOC ---
HPI: Abdomen Chief Complaint (Provider): epigastric abdominal pain History Per: Patient History/Exam Limitations: no limitations Onset/Duration Of Symptoms: Days (7), Intermittent Episodes, Worse Since ( yesterday ) Current Symptoms Are (Timing): Still Present Pain Scale Rating Of: 7 Location Of Pain/Discomfort: RUQ, Epigastric Quality Of Discomfort: Sharp Associated Symptoms: Fever, Nausea, Vomiting Exacerbating Factors: Movement Last Bowel Movement: Yesterday <Tacho Jin - Last Filed: 09/25/17 18:53> <Bipin Alvarenga - Last Filed: 09/25/17 19:14> Time Seen by Provider: 09/25/17 15:26 Chief Complaint (Nursing): Abdominal Pain Additional Complaint(s): 62 yo ,f, PMhx/o HTN, Obesity, recent discharged s/p Acute Cholecystitis 09/18/17 with antibiotics presents to ED c/o epigastric and RUQ abdominal pain that has been present since patient was discharged (7 days ago) , intermittent, worse postprandial, raidated to the back right side, with worsening of pain since yesterday, associated with nausea and 3 non-bloddy vomiting today and subjective fever. Patient denies cough, runny nose, nasal congestion, chest pain , SOB, diarrhea, dysuria. PMD: no PMD (Tacho Jin) Past Medical History Reviewed: Historical Data, Nursing Documentation, Vital Signs - Medical History PMH: HTN, Pneumonia (10 yrs ago) Denies: Chronic Kidney Disease - Family History Family History: States: Unknown Family Hx - Social History Alcohol: None Drugs: Denies <Tacho Jin - Last Filed: 09/25/17 18:53> Reviewed: Historical Data - Surgical History Surgical History: No Surg Hx <Bipin Alvarenga A - Last Filed: 09/25/17 19:14> Vital Signs: Last Vital Signs Temp 98 F 09/25/17 14:20 Pulse 80 09/25/17 14:20 Resp 16 09/25/17 14:20 BP 147/78 09/25/17 14:20 Pulse Ox 98 09/25/17 18:54 - Home Medications Home Medications: Ambulatory Orders Medication Instructions Recorded Losartan [Cozaar] 25 mg PO DAILY 09/18/17 Amoxicillin/Clavulanate [Augmentin 1 tab PO BID #14 tab 09/20/17 875 MG-125 MG] Metronidazole [Flagyl] 500 mg PO TID #21 tablet 09/20/17 Tramadol HCl [Ultram] 50 mg PO Q6 PRN #15 tab 09/20/17 - Allergies Allergies/Adverse Reactions: Allergies Allergy/AdvReac Type Severity Reaction Status Date / Time No Known Allergies Allergy Verified 09/25/17 14:20 Review of Systems ROS Statement: Except As Marked, All Systems Reviewed And Found Negative Gastrointestinal: Positive for: Nausea, Vomiting, Abdominal Pain <Tacho Jin - Last Filed: 09/25/17 18:53> ROS Statement: Except As Marked, All Systems Reviewed And Found Negative <Bipin Alvarenga A - Last Filed: 09/25/17 19:14> Physical Exam - Reviewed Nursing Documentation Reviewed: Yes Vital Signs Reviewed: Yes - Physical Exam Appears: Positive for: Well, No Acute Distress Head Exam: Positive for: ATRAUMATIC, NORMOCEPHALIC Skin: Positive for: Normal Color Eye Exam: Positive for: Normal appearance ENT: Positive for: Normal ENT Inspection Neck: Positive for: Normal Cardiovascular/Chest: Positive for: Regular Rate, Rhythm. Negative for: Murmur Respiratory: Positive for: Normal Breath Sounds. Negative for: Crackles, Rales , Rhonchi, Wheezing Gastrointestinal/Abdominal: Positive for: Soft, Tenderness (TD to palpation epigastric, RUQ, Flores +), Other (Obese ). Negative for: Distended, Guarding, Rebound Back: Positive for: Normal Inspection Extremity: Positive for: Normal ROM. Negative for: Tenderness, Pedal Edema Neurologic/Psych: Positive for: Alert, Oriented <Tacho Jin - Last Filed: 09/25/17 18:53> - Reviewed Nursing Documentation Reviewed: Yes Vital Signs Reviewed: Yes <Abdifatah Alvarengam A - Last Filed: 09/25/17 19:14> - Laboratory Results Result Diagrams: 09/25/17 15:44 09/25/17 16:55 - ECG O2 Sat by Pulse Oximetry: 98 <Tacho Jin - Last Filed: 09/25/17 18:53> - Laboratory Results Result Diagrams: 09/25/17 15:44 09/25/17 16:55 - Progress Re-evaluation Time: 18:30 Condition: Re-examined, Improving,but remains with symptoms - Physician Consult Information Time Consulting Physican Contacted: 18:00 Physician Contacted: Kalpesh Roberts <Bipin Alvarenga - Last Filed: 09/25/17 19:14> Medical Decision Making <Goyo Jinchapo - Last Filed: 09/25/17 18:53> <LyleRobdimitri Obrien - Last Filed: 09/25/17 19:14> Medical Decision Makin:15 Impression Abdominal pain. Acute cholecystitis vs Billiary colic Differential Acute Gastritis, GERD, Acute pancreatitis, Gastric Ulcer, Inferior KS, Nephrolithiasis Plan CBC, CMP, VBG, lipase, Blood cx UA US ABd limited IV fluids 1 L NS Morphine 4 mg IV Zofran 4m IV -reevaluate Patient seen by surgery resident. patient will probably be admitted Labs reviewed: CBC normal, VBG: mild respiratory acidosis. Transaminitis ALT 60 Abd Us: LIVER: Measures 16.6 cm in length. Patent portal vein. Portal venous flow: Hepatopetal. Unremarkable echogenicity of the liver parenchyma. No mass. No intrahepatic bile duct dilatation. GALLBLADDER: Cholelithiasis. Negative study for gallbladder wall thickening, pericholecystic fluid, sonographic Flores's sign. COMMON BILE DUCT: Measures 4.6 mm. No stones. No dilatation. PANCREAS: Unremarkable as visualized. No mass. No ductal dilatation. RIGHT KIDNEY: Measures 5.4 x 10.7 cm in length. Normal echogenicity. No calculus, mass, or hydronephrosis. AORTA: No aneurysmal dilatation. IVC: Unremarkable. OTHER FINDINGS: None . IMPRESSION: Cholelithiasis. No sonographic evidence of acute cholecystitis. (Tacho Jin) Disposition - Disposition Disposition Time: 18:55 <Tacho Jin - Last Filed: 09/25/17 18:53> - Patient ED Disposition Is Patient to be Admitted: Yes Discussed With : Mulugeta Mathew Doctor Will See Patient In The: ED Counseled Patient/Family Regarding: Studies Performed, Diagnosis - Disposition Disposition Time: 18:30 - Pt Status Changed To: Hospital Disposition Of: Inpatient - Admit Certification Admit to Inpatient:: After my assessment, the patient will require hospitalization for at least two midnights. This is because of the severity of symptoms shown, intensity of services needed, and/or the medical risk in this patient being treated as an outpatient. - POA Present On Arrival: None <Bipin Alvarenga - Last Filed: 09/25/17 19:14> - Clinical Impression Clinical Impression: Biliary colic, Acute cholecystitis - Disposition Condition: FAIR
[2017-09-25] MEDS ORDERED: Morphine 4 MG/ML VIAL ONE (16:44)
--- NOTE | 2017-09-25 16:44 | US ---
HISTORY: Acute cholecystitis 7 days ago.Persist RUQ Abd pain COMPARISON: 09/18/2017 abdominal ultrasound 09/18/2017 hepatobiliary scan. 09/19/2017 MRCP TECHNIQUE: Sonographic evaluation of the right upper quadrant of the abdomen. FINDINGS: LIVER: Measures 16.6 cm in length. Patent portal vein. Portal venous flow: Hepatopetal. Unremarkable echogenicity of the liver parenchyma. No mass. No intrahepatic bile duct dilatation. GALLBLADDER: Cholelithiasis. Negative study for gallbladder wall thickening, pericholecystic fluid, sonographic Flores's sign. COMMON BILE DUCT: Measures 4.6 mm. No stones. No dilatation. PANCREAS: Unremarkable as visualized. No mass. No ductal dilatation. RIGHT KIDNEY: Measures 5.4 x 10.7 cm in length. Normal echogenicity. No calculus, mass, or hydronephrosis. AORTA: No aneurysmal dilatation. IVC: Unremarkable. OTHER FINDINGS: None . IMPRESSION: Cholelithiasis. No sonographic evidence of acute cholecystitis.
[2017-09-25] MEDS ORDERED: Sodium Chloride 0.9% 1,000 ML IV STA (16:58)
--- NOTE | 2017-09-25 17:11 | CP.PCM.CON ---
<Сергей Bird - Last Filed: 09/25/17 20:54> History of Present Illness - History of Present Illness History of Present Illness: General Surgery Consult Note for Dr. Roberts Reason for Consult: abdominal pain and nausea/vomiting 61 F with PMH that includes HTN presents to [facility] for abdominal pain and nausea/ vomiting. Patient was seen and evaluated in the ED. Patient was discharged on 04/30 from [facility]. She was admitted for acute cholecystitis. She was sent home with Augmentin and Flagyl then was told to follow up as outpatient for elective surgery. Patient reports calling the office on Friday but was unable to reach anyone. She states that she has had these symptoms for last two days. She states she has had multiple episodes of yellow emesis each day. Patient rates pain as moderate to severe. She describes pain as constant and sharp located in RUQ without radiation. Eating/drinking exacerbates symptoms while nothing alleviates them. 12 point ROS perfromed and negative unless otherwise stated above. PMH: HTN Meds: as per emr ALL: NKDA PSH: Hysterectomy FH: non-contributory Social: Denies Tobacco/EtOH/illicit drug use Review of Systems - Review of Systems All systems: reviewed and no additional remarkable complaints except (12 point ROS perfromed and negative unless otherwise stated in HPI) Past Patient History - Infectious Disease Hx of Infectious Diseases: None - Past Medical History & Family History Past Medical History?: Yes - Past Social History Alcohol: None Drugs: Denies - CARDIAC Hx Hypertension: Yes - PULMONARY Hx Pneumonia: Yes (10 yrs ago) - NEUROLOGICAL Hx Neurological Disorder: No - HEENT Hx HEENT Problems: No - RENAL Hx Chronic Kidney Disease: No - ENDOCRINE/METABOLIC Hx Endocrine Disorders: No - HEMATOLOGICAL/ONCOLOGICAL Hx Blood Disorders: No - INTEGUMENTARY Hx Dermatological Problems: No - MUSCULOSKELETAL/RHEUMATOLOGICAL Hx Musculoskeletal Disorders: No Hx Falls: No - GASTROINTESTINAL Hx Gastrointestinal Disorders: No Other/Comment: Ventral hernia - GENITOURINARY/GYNECOLOGICAL Hx Genitourinary Disorders: No - PSYCHIATRIC Hx Psychophysiologic Disorder: No Hx Substance Use: No - SURGICAL HISTORY Hx Surgeries: Yes Hx Hysterectomy: Yes - ANESTHESIA Hx Anesthesia: Yes Hx Anesthesia Reactions: No Meds Allergies/Adverse Reactions: Allergies Allergy/AdvReac Type Severity Reaction Status Date / Time No Known Allergies Allergy Verified 09/25/17 14:20 - Medications Medications: Current Medications Sodium Chloride (Sodium Chloride 0.9%) 1,000 mls @ 1,000 mls/hr IV .Q1H STA Stop: 09/25/17 17:57 Last Admin: 09/25/17 17:02 Dose: 1,000 mls/hr Physical Exam - Constitutional Appears: No Acute Distress - Head Exam Head Exam: ATRAUMATIC, NORMOCEPHALIC - Eye Exam Eye Exam: EOMI, Normal appearance Pupil Exam: PERRL - ENT Exam ENT Exam: Mucous Membranes Dry - Neck Exam Neck exam: Negative for: Tenderness - Respiratory Exam Respiratory Exam: NORMAL BREATHING PATTERN - Cardiovascular Exam Cardiovascular Exam: REGULAR RHYTHM - GI/Abdominal Exam GI & Abdominal Exam: Normal Bowel Sounds, Soft, Tenderness (RUQ). absent: Distended, Firm, Guarding, Rebound, Rigid - Extremities Exam Extremities exam: Positive for: normal capillary refill, pedal pulses present - Back Exam Back exam: absent: CVA tenderness (L), CVA tenderness (R) - Neurological Exam Neurological exam: Alert, CN II-XII Intact, Oriented x3 - Psychiatric Exam Psychiatric exam: Normal Affect, Normal Mood - Skin Skin Exam: Dry, Intact, Normal Color, Warm Results - Vital Signs Recent Vital Signs: Last Vital Signs Temp 98 F 09/25/17 14:20 Pulse 80 09/25/17 14:20 Resp 16 09/25/17 14:20 BP 147/78 09/25/17 14:20 Pulse Ox 98 09/25/17 17:00 - Labs Result Diagrams: 09/25/17 15:44 09/25/17 16:55 Assessment & Plan - Assessment and Plan (Free Text) Assessment: 62 F with abdominal pain and nausea/vomiting likely secondary to acute cholecystitis Plan: -NPO -IV abx -IV fluids -Analgesics/Anti-emetics PRN -OR tomorrow at 10 am for Laparoscopic cholecystectomy -will pre op patient -Will discuss with Dr. Armando Bird PGY <Kalpesh Roberts - Last Filed: 09/26/17 11:57> History of Present Illness - History of Present Illness History of Present Illness: Patient was seen and examined at the bedside. Agree with resident's note above. Meds - Medications Medications: Current Medications Acetaminophen (Tylenol 325mg Tab) 650 mg PO Q6 PRN PRN Reason: Fever >100.4 F Hydromorphone HCl (Dilaudid) 0.5 mg IVP Q3 PRN PRN Reason: Pain, severe (8-10) Sodium Chloride (Sodium Chloride 0.9%) 1,000 mls @ 150 mls/hr IV .Q6H40M [facility] Stop: 09/26/17 17:35 Last Admin: 09/26/17 09:15 Dose: Not Given Piperacillin Sod/Tazobactam (Sod 3.375 gm/ Sodium Chloride) 100 mls @ 100 mls/ hr IVPB Q6 DAYNA PRN Reason: Protocol Last Admin: 09/26/17 09:13 Dose: 100 mls/hr Ondansetron HCl (Zofran Inj) 4 mg IVP Q6 PRN PRN Reason: Nausea/Vomiting Pantoprazole Sodium (Protonix Inj) 40 mg IVP DAILY [facility] Last Admin: 09/26/17 09:13 Dose: 40 mg Results - Vital Signs Recent Vital Signs: Last Vital Signs Temp 98.2 F 09/26/17 07:51 Pulse 70 09/26/17 07:51 Resp 20 09/26/17 07:51 BP 128/76 09/26/17 07:51 Pulse Ox 95 09/26/17 07:51 - Labs Result Diagrams: 09/26/17 05:50 09/26/17 05:50 Labs: Laboratory Results - last 24 hr 09/25/17 09/25/17 09/25/17 15:44 16:55 16:55 WBC 8.3 RBC 4.67 Hgb 13.0 Hct 39.9 MCV 85.4 MCH 27.9 MCHC 32.7 L RDW 14.8 H Plt Count 182 MPV 8.9 Neut % (Auto) 62.1 Lymph % (Auto) 23.8 [place] % (Auto) 8.4 Eos % (Auto) 5.0 H Baso % (Auto) 0.7 Neut # (Auto) 5.2 Lymph # (Auto) 2.0 [place] # (Auto) 0.7 Eos # (Auto) 0.4 Baso # (Auto) 0.1 PT INR APTT pO2 VBG pH VBG pCO2 VBG HCO3 VBG Total CO2 VBG O2 Sat (Calc) VBG Base Excess VBG Potassium Glucose Lactate FiO2 Sodium 144 Potassium 4.5 Chloride 104 Carbon Dioxide 26 Anion Gap 19 BUN 14 Creatinine 1.1 Est GFR ( Amer) > 60 Est GFR (Non-Af Amer) 50 Random Glucose 97 Calcium 9.5 Total Bilirubin 0.6 AST 31 ALT 66 H D Alkaline Phosphatase 74 Total Protein 7.6 Albumin 3.9 Globulin 3.7 Albumin/Globulin Ratio 1.1 Lipase 66 Venous Blood Potassium Urine Color Urine Clarity Urine pH Ur Specific [place] Urine Protein Urine Glucose (UA) Urine Ketones Urine Blood Urine Nitrate Urine Bilirubin Urine Urobilinogen Ur Leukocyte Esterase Urine RBC (Auto) Urine Microscopic WBC Ur Squamous Epith Cells Influenza Typ A,B (EIA) Blood Type O POSITIVE Antibody Screen Negative BBK History Checked Patient has bt 09/25/17 09/25/17 09/25/17 16:55 17:06 19:32 WBC RBC Hgb Hct MCV MCH MCHC RDW Plt Count MPV Neut % (Auto) Lymph % (Auto) [place] % (Auto) Eos % (Auto) Baso % (Auto) Neut # (Auto) Lymph # (Auto) [place] # (Auto) Eos # (Auto) Baso # (Auto) PT 10.6 INR 1.0 APTT 32.3 pO2 28 L VBG pH 7.32 VBG pCO2 59 VBG HCO3 25.7 VBG Total CO2 32.2 H VBG O2 Sat (Calc) 54.1 VBG Base Excess 2.8 H VBG Potassium 4.4 Glucose 94 Lactate 0.9 FiO2 21.0 Sodium 141.0 Potassium Chloride 109.0 H Carbon Dioxide Anion Gap BUN Creatinine Est GFR ( Amer) Est GFR (Non-Af Amer) Random Glucose Calcium Total Bilirubin AST ALT Alkaline Phosphatase Total Protein Albumin Globulin Albumin/Globulin Ratio Lipase Venous Blood Potassium 4.4 Urine Color Yellow Urine Clarity Clear Urine pH 6.0 Ur Specific [place] 1.011 Urine Protein Negative Urine Glucose (UA) Neg Urine Ketones Negative Urine Blood Negative Urine Nitrate Negative Urine Bilirubin Negative Urine Urobilinogen 0.2-1.0 Ur Leukocyte Esterase Trace Urine RBC (Auto) 3 Urine Microscopic WBC 1 Ur Squamous Epith Cells 1 Influenza Typ A,B (EIA) Blood Type Antibody Screen BBK History Checked 09/25/17 09/26/17 09/26/17 20:30 05:50 05:50 WBC 7.4 RBC 4.36 Hgb 12.3 Hct 37.4 MCV 85.6 MCH 28.2 MCHC 33.0 RDW 14.9 H Plt Count 185 MPV 9.1 Neut % (Auto) 61.2 Lymph % (Auto) 24.7 [place] % (Auto) 9.2 Eos % (Auto) 4.3 H Baso % (Auto) 0.6 Neut # (Auto) 4.5 Lymph # (Auto) 1.8 [place] # (Auto) 0.7 Eos # (Auto) 0.3 Baso # (Auto) 0.0 PT INR APTT pO2 VBG pH VBG pCO2 VBG HCO3 VBG Total CO2 VBG O2 Sat (Calc) VBG Base Excess VBG Potassium Glucose Lactate FiO2 Sodium 145 Potassium 4.4 Chloride 105 Carbon Dioxide 27 Anion Gap 17 BUN 10 Creatinine 1.2 Est GFR ( Amer) 55 Est GFR (Non-Af Amer) 46 Random Glucose 100 Calcium 8.9 Total Bilirubin AST ALT Alkaline Phosphatase Total Protein Albumin Globulin Albumin/Globulin Ratio Lipase Venous Blood Potassium Urine Color Urine Clarity Urine pH Ur Specific [place] Urine Protein Urine Glucose (UA) Urine Ketones Urine Blood Urine Nitrate Urine Bilirubin Urine Urobilinogen Ur Leukocyte Esterase Urine RBC (Auto) Urine Microscopic WBC Ur Squamous Epith Cells Influenza Typ A,B (EIA) Negative for flu a/b Blood Type Antibody Screen BBK History Checked
[2017-09-25 17:14] LABS: VENOUS BLOOD GAS BASE EXCESS 2.8 mmol/L (0.0-2.0); VENOUS BLOOD GAS PCO2 59 mmHg (40-60); VENOUS BLOOD GAS PO2 28 mm/Hg (30-55); VENOUS BLOOD PH 7.32 (7.32-7.43)
[2017-09-25 17:18] LABS: BASO # 0.1 K/uL (0.0-0.2); BASO % 0.7 % (0.0-2.0); EOS # 0.4 K/uL (0.0-0.7); LYMPH % 23.8 % (20.0-40.0); MEAN CELL VOLUME 85.4 fl (81.0-99.0); MEAN CORPUSCULAR HEMOGLOBIN 27.9 pg (27.0-31.0); MEAN CORPUSCULAR HGB CONC 32.7 g/dL (33.0-37.0); MEAN PLATELET VOLUME 8.9 fl (7.2-11.7); MONO # 0.7 K/uL (0.0-0.8); MONO % 8.4 % (0.0-10.0); NEUT # 5.2 K/uL (1.8-7.0); NEUT % 62.1 % (50.0-75.0); RBC 4.67 Mil/uL (3.80-5.20); RED CELL DISTRIBUTION WIDTH 14.8 % (11.5-14.5); WHITE BLOOD COUNT 8.3 K/uL (4.8-10.8)
[2017-09-25 17:31] LABS: PARTIAL THROMBOPLASTIN TIME 32.3 Seconds (25.6-37.1); PROTHROMBIN TIME 10.6 Seconds (9.8-13.1)
[2017-09-25 17:33] LABS: ALB/GLOB RATIO 1.1 (1.0-2.1); ALBUMIN 3.9 g/dL (3.5-5.0); ALT/SGPT 66 U/L (9-52); AST/SGOT 31 U/L (14-36); BLOOD UREA NITROGEN 14 mg/dl (7-17); CALCIUM 9.5 mg/dL (8.4-10.2); GFR AFRICAN-AMERICAN > 60; GFR NON-AFRICAN AMERICAN 50; LIPASE 66 U/L (23-300)
[2017-09-25] MEDS: Sodium Chloride 0.9% 1,000 ML IV SCH ×2 (19:39→21:14)
--- NOTE | 2017-09-25 19:43 | CP.PCM.HP ---
History of Present Illness - History of Present Illness History of Present Illness: 62 yo female with history of HTN diagnosed with Acute Cholecystitis and discharged 5 days ago after being managed conservatively with antibiotics came back because of RUQ pain associated with nausea since last night. Denied vomiting, fever, chills or diarrhea. Present on Admission - Present on Admission Any Indicators Present on Admission: No History of DVT/PE: No History of Uncontrolled Diabetes: No Urinary Catheter: No Decubitus Ulcer Present: No Review of Systems - Review of Systems All systems: reviewed and no additional remarkable complaints except (aside from those mentioned above, 14 point system review were negative by me) Past Patient History - Infectious Disease Hx of Infectious Diseases: None - Past Medical History & Family History Past Medical History?: Yes - Past Social History Alcohol: None Drugs: Denies - CARDIAC Hx Hypertension: Yes - PULMONARY Hx Pneumonia: Yes (10 yrs ago) - NEUROLOGICAL Hx Neurological Disorder: No - HEENT Hx HEENT Problems: No - RENAL Hx Chronic Kidney Disease: No - ENDOCRINE/METABOLIC Hx Endocrine Disorders: No - HEMATOLOGICAL/ONCOLOGICAL Hx Blood Disorders: No - INTEGUMENTARY Hx Dermatological Problems: No - MUSCULOSKELETAL/RHEUMATOLOGICAL Hx Musculoskeletal Disorders: No Hx Falls: No - GASTROINTESTINAL Hx Gastrointestinal Disorders: No Other/Comment: Ventral hernia - GENITOURINARY/GYNECOLOGICAL Hx Genitourinary Disorders: No - PSYCHIATRIC Hx Psychophysiologic Disorder: No Hx Substance Use: No - SURGICAL HISTORY Hx Surgeries: Yes Hx Hysterectomy: Yes - ANESTHESIA Hx Anesthesia: Yes Hx Anesthesia Reactions: No Meds Allergies/Adverse Reactions: Allergies Allergy/AdvReac Type Severity Reaction Status Date / Time No Known Allergies Allergy Verified 09/25/17 14:20 Physical Exam - Constitutional Appears: No Acute Distress - Head Exam Head Exam: ATRAUMATIC - Eye Exam Eye Exam: absent: Scleral icterus - ENT Exam ENT Exam: Mucous Membranes Moist - Neck Exam Neck exam: Negative for: Meningismus - Respiratory Exam Respiratory Exam: absent: Rales, Rhonchi, Wheezes, Respiratory Distress - Cardiovascular Exam Cardiovascular Exam: REGULAR RHYTHM, +S1, +S2 - GI/Abdominal Exam GI & Abdominal Exam: Soft. absent: Tenderness - Rectal Exam Rectal Exam: Deferred - Extremities Exam Extremities exam: Negative for: calf tenderness, pedal edema - Back Exam Back exam: absent: tenderness - Neurological Exam Neurological exam: Alert, Oriented x3 - Psychiatric Exam Psychiatric exam: Normal Affect - Skin Skin Exam: Dry, Intact Results - Vital Signs Recent Vital Signs: Last Vital Signs Temp 98 F 09/25/17 14:20 Pulse 80 09/25/17 14:20 Resp 16 09/25/17 14:20 BP 147/78 09/25/17 14:20 Pulse Ox 98 09/25/17 18:54 - Labs Result Diagrams: 09/25/17 15:44 09/25/17 16:55 Labs: Laboratory Results - last 24 hr 09/25/17 09/25/17 09/25/17 15:44 16:55 16:55 WBC 8.3 RBC 4.67 Hgb 13.0 Hct 39.9 MCV 85.4 MCH 27.9 MCHC 32.7 L RDW 14.8 H Plt Count 182 MPV 8.9 Neut % (Auto) 62.1 Lymph % (Auto) 23.8 [place] % (Auto) 8.4 Eos % (Auto) 5.0 H Baso % (Auto) 0.7 Neut # (Auto) 5.2 Lymph # (Auto) 2.0 [place] # (Auto) 0.7 Eos # (Auto) 0.4 Baso # (Auto) 0.1 PT INR APTT pO2 VBG pH VBG pCO2 VBG HCO3 VBG Total CO2 VBG O2 Sat (Calc) VBG Base Excess VBG Potassium Glucose Lactate FiO2 Sodium 144 Potassium 4.5 Chloride 104 Carbon Dioxide 26 Anion Gap 19 BUN 14 Creatinine 1.1 Est GFR ( Amer) > 60 Est GFR (Non-Af Amer) 50 Random Glucose 97 Calcium 9.5 Total Bilirubin 0.6 AST 31 ALT 66 H D Alkaline Phosphatase 74 Total Protein 7.6 Albumin 3.9 Globulin 3.7 Albumin/Globulin Ratio 1.1 Lipase 66 Venous Blood Potassium Blood Type O POSITIVE Antibody Screen Negative BBK History Checked Patient has bt 09/25/17 09/25/17 16:55 17:06 WBC RBC Hgb Hct MCV MCH MCHC RDW Plt Count MPV Neut % (Auto) Lymph % (Auto) [place] % (Auto) Eos % (Auto) Baso % (Auto) Neut # (Auto) Lymph # (Auto) [place] # (Auto) Eos # (Auto) Baso # (Auto) PT 10.6 INR 1.0 APTT 32.3 pO2 28 L VBG pH 7.32 VBG pCO2 59 VBG HCO3 25.7 VBG Total CO2 32.2 H VBG O2 Sat (Calc) 54.1 VBG Base Excess 2.8 H VBG Potassium 4.4 Glucose 94 Lactate 0.9 FiO2 21.0 Sodium 141.0 Potassium Chloride 109.0 H Carbon Dioxide Anion Gap BUN Creatinine Est GFR ( Amer) Est GFR (Non-Af Amer) Random Glucose Calcium Total Bilirubin AST ALT Alkaline Phosphatase Total Protein Albumin Globulin Albumin/Globulin Ratio Lipase Venous Blood Potassium 4.4 Blood Type Antibody Screen BBK History Checked Assessment & Plan - Assessment and Plan (Free Text) Assessment: 62 yo female with history of HTN diagnosed with Acute Cholecystitis and discharged 5 days ago after being managed conservatively with antibiotics came back because of RUQ pain associated with nausea since last night. Denied vomiting, fever, chills or diarrhea. 1. Acute Cholecystitis keep NPO IV hydration with NSS Morphine 2mg IV q 4hrs prn for pain Zofran 4mg IV q 4hrs prn for nausea Zosyn 3.375gm IV q 6hrs ECHO: normal LV function and wall motion Patient is cleared as acceptable risk for surgery from a medical standpoint surgical consult with Dr Roberts 2. HTN BP stable
[2017-09-25 20:54] LABS: SQUAMOUS EPITHIAL 1 /hpf (0-5); URINE BILIRUBIN NEGATIVE (NEGATIVE); URINE BLOOD NEGATIVE (NEGATIVE); URINE CLARITY CLEAR (Clear); URINE COLOR YELLOW (YELLOW); URINE GLUCOSE (UA) NEG (Normal); URINE LEUKOCYTE ESTERASE TRACE Leu/uL (Negative); URINE PROTEIN NEGATIVE (NEGATIVE); URINE UROBILINOGEN 0.2-1.0 mg/dL (0.2-1.0)
[2017-09-25] MEDS: Piperacillin/Tazobact 3.375 GM in Sodium Chloride 0.9% 100 ML IVPB SCH (22:40)
[2017-09-26] MEDS: Sodium Chloride 0.9% 1,000 ML IV SCH ×4 (00:25→17:47)
[2017-09-26] MEDS: Piperacillin/Tazobact 3.375 GM in Sodium Chloride 0.9% 100 ML IVPB SCH ×2 (04:30→09:13)
[2017-09-26 06:51] LABS: CALCIUM 8.9 mg/dL (8.4-10.2)
[2017-09-26 07:31] LABS: BASO % 0.6 % (0.0-2.0); EOS # 0.3 K/uL (0.0-0.7); EOS % 4.3 % (0.0-4.0); HEMOGLOBIN 12.3 g/dL (12.0-16.0); LYMPH # 1.8 K/uL (1.0-4.3); LYMPH % 24.7 % (20.0-40.0); MEAN CELL VOLUME 85.6 fl (81.0-99.0); MEAN CORPUSCULAR HEMOGLOBIN 28.2 pg (27.0-31.0); MEAN PLATELET VOLUME 9.1 fl (7.2-11.7); MONO # 0.7 K/uL (0.0-0.8); MONO % 9.2 % (0.0-10.0); NEUT # 4.5 K/uL (1.8-7.0); NEUT % 61.2 % (50.0-75.0); NRBC % 0.3 % (0.0-0.0); RBC 4.36 Mil/uL (3.80-5.20); RED CELL DISTRIBUTION WIDTH 14.9 % (11.5-14.5); WHITE BLOOD COUNT 7.4 K/uL (4.8-10.8)
[2017-09-26] MEDS ORDERED: Bupivacaine 0.5% Inj(30mL) ONE (09:41)
[2017-09-26] MEDS ORDERED: Succinylcholine 200 mg/10 ml Inj IV ONE (10:03)
[2017-09-26] MEDS ORDERED: Propofol 10 mg/ml Inj (20 ML) ONE (10:03)
[2017-09-26] MEDS ORDERED: Rocuronium 10 mg/ml (5 ml) ONE (10:03)
[2017-09-26] MEDS ORDERED: Lidocaine 4% (Laryng-O-Jet) Kit MM ONE (10:03)
[2017-09-26] MEDS ORDERED: Etomidate 20 mg/10ml Inj IV ONE (10:04)
[2017-09-26] MEDS ORDERED: Lactated Ringer's 500 ML IV ONE ×2 (10:30→11:15)
[2017-09-26] MEDS ORDERED: Midazolam 2 MG/2 ML VIAL ONE (10:31)
[2017-09-26] MEDS ORDERED: Neostigmine 1:1000 (1 mg/ml) Inj ONE (10:58)
[2017-09-26] MEDS ORDERED: Dexamethasone 4 mg/1 ml ONE (10:58)
[2017-09-26] MEDS ORDERED: Bupivacaine 0.5% 50 ML IJ ONE ×2 (10:58→11:42)
[2017-09-26] MEDS ORDERED: Sodium Chloride 0.9% 500 ML IV ONE (11:37)
--- NOTE | 2017-09-26 11:54 | CARD ---
APPROVED REPORT EKG Measurement Heart [id number] <Conclusion> Normal sinus rhythm Incomplete right bundle branch block Borderline ECG
[2017-09-26] MEDS ORDERED: HYDROmorphone 0.5 mg/0.5 ml ISec IVP PRN (12:06)
--- NOTE | 2017-09-26 12:08 | PCM.SURG1 ---
Surgeon's Initial Post Op Note - Surgeon's Notes Surgeon: Armando Concrete Bucket Hooker: BRUNO CarpenterY2. BRUNO De [id number] Pre-Operative Diagnosis: Symptomatic cholelithiasis Operative Findings: cholelithiasis Post-Operative Diagnosis: Symptomatic cholelithiasis Operation Performed: Laparoscopic cholelithiasis Specimen/Specimens Removed: Gallbladder Estimated Blood Loss: EBL {In ML}: 10 Date of Surgery/Procedure: 09/26/17 Time of Surgery/Procedure: 10:45
[2017-09-26] MEDS ORDERED: Lactated Ringer's 1,000 ML IV SCH (12:15)
--- NOTE | 2017-09-26 13:34 | OP ---
PROCEDURE DATE: PREOPERATIVE DIAGNOSIS: Symptomatic cholelithiasis. POSTOPERATIVE DIAGNOSIS: Symptomatic cholelithiasis PROCEDURE: Laparoscopic cholecystectomy. SURGEON: Kalpesh Roberts MD SUPERINTENDENT MECHANICAL: Rashmi. TYPE OF ANESTHESIA: General endotracheal intubation. INTRAVENOUS FLUIDS: Crystalloids. ESTIMATED BLOOD LOSS: 10 mL. INTRAOPERATIVE FINDINGS: Cholelithiasis and chronic cholecystitis. SPECIMEN: Gallbladder with stones. BRIEF HISTORY: Mrs. Karissa Herrera is a pleasant 62-year-old female who came to the hospital complaining of epigastric and right upper quadrant abdominal pain and upon further investigation, was found to have gallstones on ultrasound. All the risk and benefits of the procedure were explained to the patient. With the patient having a full understanding of all the risks and benefits involved; informed consent was obtained and the patient was taken to the operating room for above stated procedure. DESCRIPTION OF PROCEDURE: The patient was brought into the operating room and placed supine on the operating table. Bilateral Flowtron boots were applied to the patient's lower extremities. After successful induction of anesthesia and successful endotracheal intubation by the Anesthesia team, the patient's abdomen was prepped with ChloraPrep stick and draped in a standard surgical fashion. Prior to the beginning of the procedure, a timeout was called in the room and everyone in the room were in agreement. Using Veress needle, the patient's abdomen was entered at the umbilicus and pneumoperitoneum was achieved with good opening pressures. Once this was accomplished, using an number 11 blade scalpel knife, approximately 1-cm incision was made supraumbilically in the longitudinal fashion and subsequent to that an11-mm trocar was introduced into the patient's abdomen. At this point in time, 5-mm 0-degree scope was introduced into the patient's abdomen and the abdomen was inspected. We immediately were able to visualize the gallbladder that appeared to be chronically inflamed. Then, attention was turned to the subxiphoid area, using the number 11 blade scalpel knife, a 5-mm incision was made in a transverse fashion and subsequent to that, 5-mm trocar was introduced into the patient's abdomen. Then, attention was turned to the right side of the patient's abdomen, using a number 11 blade scalpel knife, two 5-mm incisions were made in a transverse fashion and subsequent to that, another two 5-mm trocars were introduced into the patient's abdomen. At this point in time, gallbladder was grasped at the fundus and the infundibulum, and using [place] dissector, cystic duct and cystic artery were dissected out and critical view of safety was achieved. At this point in time, cystic duct was clipped with two clips proximal, one distal, and transected with laparoscopic scissors. Same thing was done for the cystic artery. It was clipped with two clips proximal, one distal, and transected with laparoscopic scissors. At this point in time, upon further dissection, posterior branch of the cystic artery was encountered, which was dissected out with [place] dissector and clipped with two clips proximal, one distal, and transected with laparoscopic scissors. At this point in time, gallbladder was dissected off the gallbladder fossa using hook electrical cautery and once the gallbladder was completely freed up from the gallbladder fossa, Endo Catch bag was introduced into the patient's abdomen; gallbladder was placed inside of the bag, and the bag was closed. At this point in time, gallbladder fossa was inspected for hemostasis. Hemostasis was confirmed, and gallbladder fossa and abdominal cavity were irrigated with sterile saline and the fluid was suctioned out. At this point in time, an 11 mm trocar together with the EndoCatch bag and gallbladder were removed from the patient's abdomen and passed off to the [facility] as a specimen. Fascial layer at the umbilical port site was closed with two interrupted 0 Vicryl sutures on UR-6 needle, and subsequent to that, patient's abdomen was fully desufflated. The rest of the trocars were removed from the patient's abdomen and the skin was closed with 4-0 Monocryl suture in a running subcuticular fashion. At the end of the procedure, incision sites were infiltrated with Marcaine anesthetic. The patient's abdomen was washed and dried, and Dermabond was applied to the site of the incisions. The patient was successfully extubated by the anesthesia team, transferred to the stretcher, and taken to the recovery room in a stable condition. At the end of the procedure, all instrument counts, needles, and sponges were correct. Kalpesh Roberts MD [facility] # [id number] JOZEF
--- NOTE | 2017-09-26 17:16 | CP.PCM.PN ---
Subjective - Date & Time of Evaluation Date of Evaluation: 09/26/17 Time of Evaluation: 16:00 - Subjective Subjective: Patient seen and examined. Complained of pain on operative site but claimed it was bearable. Objective - Vital Signs/Intake and Output Vital Signs (last 24 hours): Temp Pulse Resp BP Pulse Ox 97.3 F L 78 18 147/77 96 09/26/17 15:44 09/26/17 15:44 09/26/17 15:44 09/26/17 15:44 09/26/17 15:44 Intake and Output: 09/26/17 09/26/17 06:59 18:59 Intake Total 1200 Balance 1200 - Medications Medications: Current Medications Acetaminophen (Tylenol 325mg Tab) 650 mg PO Q6 PRN PRN Reason: Fever >100.4 F Hydromorphone HCl (Dilaudid) 0.5 mg IVP Q3 PRN PRN Reason: Pain, severe (8-10) Sodium Chloride (Sodium Chloride 0.9%) 1,000 mls @ 150 mls/hr IV .Q6H40M [facility] Stop: 09/26/17 17:35 Last Admin: 09/26/17 09:15 Dose: Not Given Lactated Ringer's (Lactated Ringer's) 1,000 mls @ 100 mls/hr IV .Q10H [facility] Ondansetron HCl (Zofran Inj) 4 mg IVP Q6 PRN PRN Reason: Nausea/Vomiting Pantoprazole Sodium (Protonix Inj) 40 mg IVP DAILY [facility] Last Admin: 09/26/17 09:13 Dose: 40 mg - Labs Labs: 09/26/17 05:50 09/26/17 05:50 PT 10.6 Seconds (9.8-13.1) 09/25/17 16:55 INR 1.0 (0.9-1.2) 09/25/17 16:55 APTT 32.3 Seconds (25.6-37.1) 09/25/17 16:55 - Constitutional Appears: No Acute Distress - Head Exam Head Exam: ATRAUMATIC - Eye Exam Eye Exam: absent: Scleral icterus - ENT Exam ENT Exam: Mucous Membranes Moist - Neck Exam Neck Exam: absent: Meningismus - Respiratory Exam Respiratory Exam: absent: Rales, Rhonchi, Wheezes, Respiratory Distress - Cardiovascular Exam Cardiovascular Exam: REGULAR RHYTHM, +S1, +S2 - GI/Abdominal Exam GI & Abdominal Exam: Soft, Tenderness (tenderness on operative site) - Rectal Exam Rectal Exam: Deferred - Neurological Exam Neurological Exam: Alert, Oriented x3 - Psychiatric Exam Psychiatric exam: Normal Affect - Skin Skin Exam: Dry, Intact Assessment and Plan - Assessment and Plan (Free Text) Assessment: 62 yo female with history of HTN diagnosed with Acute Cholecystitis and discharged 5 days ago after being managed conservatively with antibiotics came back because of RUQ pain associated with nausea since last night. Denied vomiting, fever, chills or diarrhea. 1. Acute Cholecystitis S/P Laparoscopic Cholecystectomy may start on clear liquid diet then regular diet when tolerated for possible DC in am spoke with Dr Roberts. He recommended no antibiotics 2. HTN BP stable
--- NOTE | 2017-09-27 06:25 | CP.PCM.PN ---
Subjective - Date & Time of Evaluation Date of Evaluation: 09/27/17 Time of Evaluation: 06:23 - Subjective Subjective: SURGERY PROGRESS NOTE FOR DR. TONY 62F seen and examined at bedside. Patient denies pain, nausea, vomiting, fevers , chills. She is tolerating liquid diet. Objective - Vital Signs/Intake and Output Vital Signs (last 24 hours): Temp Pulse Resp BP Pulse Ox 97.5 F L 72 18 135/75 96 09/27/17 04:25 09/27/17 04:25 09/27/17 04:25 09/27/17 04:25 09/27/17 04:25 Intake and Output: 09/26/17 09/27/17 18:59 06:59 Intake Total 1200 Balance 1200 - Medications Medications: Current Medications Acetaminophen (Tylenol 325mg Tab) 650 mg PO Q6 PRN PRN Reason: Fever >100.4 F Hydromorphone HCl (Dilaudid) 0.5 mg IVP Q3 PRN PRN Reason: Pain, severe (8-10) Lactated Ringer's (Lactated Ringer's) 1,000 mls @ 100 mls/hr IV .Q10H [facility] Last Admin: 09/26/17 22:03 Dose: 100 mls/hr Losartan Potassium (Cozaar) 25 mg PO DAILY [facility] Last Admin: 09/26/17 21:58 Dose: 25 mg Ondansetron HCl (Zofran Inj) 4 mg IVP Q6 PRN PRN Reason: Nausea/Vomiting Pantoprazole Sodium (Protonix Inj) 40 mg IVP DAILY [facility] Last Admin: 09/26/17 09:13 Dose: 40 mg - Labs Labs: 09/26/17 05:50 09/26/17 05:50 PT 10.6 Seconds (9.8-13.1) 09/25/17 16:55 INR 1.0 (0.9-1.2) 09/25/17 16:55 APTT 32.3 Seconds (25.6-37.1) 09/25/17 16:55 - Constitutional Appears: Well, Non-toxic, No Acute Distress - Respiratory Exam Respiratory Exam: Clear to Ausculation Bilateral, NORMAL BREATHING PATTERN - Cardiovascular Exam Cardiovascular Exam: REGULAR RHYTHM, +S1, +S2 - GI/Abdominal Exam GI & Abdominal Exam: Soft. absent: Distended, Firm, Guarding, Rigid, Tenderness , Rebound Additional comments: incisions clean dry and intact - Neurological Exam Neurological Exam: Alert, Awake - Psychiatric Exam Psychiatric exam: Normal Affect, Normal Mood - Skin Skin Exam: Dry, Intact, Normal Color, Warm Assessment and Plan - Assessment and Plan (Free Text) Assessment: 62F s/p laparoscopic cholecystectomy POD1 Plan: - Advance diet as tolerated - pain control Further recs discuss with Dr Armando Carpenter, PGY2
--- NOTE | 2017-09-27 07:23 | CP.PCM.DIS ---
Provider - Provider Date of Admission: 09/25/17 18:31 Attending physician: Mulugeta Mathew MD Consults: Surgery consult Time Spent in preparation of Discharge (in minutes): 10 Hospital Course - Lab Results Lab Results: Micro Results 09/25/17 16:55 Blood-Venous Blood Culture - Preliminary NO GROWTH AFTER 24 HOURS Most Recent Lab Values WBC 7.4 K/uL (4.8-10.8) 09/26/17 05:50 RBC 4.36 Mil/uL (3.80-5.20) 09/26/17 05:50 Hgb 12.3 g/dL (12.0-16.0) 09/26/17 05:50 Hct 37.4 % (34.0-47.0) 09/26/17 05:50 MCV 85.6 fl (81.0-99.0) 09/26/17 05:50 MCH 28.2 pg (27.0-31.0) 09/26/17 05:50 MCHC 33.0 g/dL (33.0-37.0) 09/26/17 05:50 RDW 14.9 % (11.5-14.5) H 09/26/17 05:50 Plt Count 185 K/uL (130-400) 09/26/17 05:50 MPV 9.1 fl (7.2-11.7) 09/26/17 05:50 Neut % (Auto) 61.2 % (50.0-75.0) 09/26/17 05:50 Lymph % (Auto) 24.7 % (20.0-40.0) 09/26/17 05:50 [place] % (Auto) 9.2 % (0.0-10.0) 09/26/17 05:50 Eos % (Auto) 4.3 % (0.0-4.0) H 09/26/17 05:50 Baso % (Auto) 0.6 % (0.0-2.0) 09/26/17 05:50 Neut # (Auto) 4.5 K/uL (1.8-7.0) 09/26/17 05:50 Lymph # (Auto) 1.8 K/uL (1.0-4.3) 09/26/17 05:50 [place] # (Auto) 0.7 K/uL (0.0-0.8) 09/26/17 05:50 Eos # (Auto) 0.3 K/uL (0.0-0.7) 09/26/17 05:50 Baso # (Auto) 0.0 K/uL (0.0-0.2) 09/26/17 05:50 PT 10.6 Seconds (9.8-13.1) 09/25/17 16:55 INR 1.0 (0.9-1.2) 09/25/17 16:55 APTT 32.3 Seconds (25.6-37.1) 09/25/17 16:55 pO2 28 mm/Hg (30-55) L 09/25/17 17:06 VBG pH 7.32 (7.32-7.43) 09/25/17 17:06 VBG pCO2 59 mmHg (40-60) 09/25/17 17:06 VBG HCO3 25.7 mmol/L 09/25/17 17:06 VBG Total CO2 32.2 mmol/L (22-28) H 09/25/17 17:06 VBG O2 Sat (Calc) 54.1 % (40-65) 09/25/17 17:06 VBG Base Excess 2.8 mmol/L (0.0-2.0) H 09/25/17 17:06 VBG Potassium 4.4 mmol/L (3.6-5.2) 09/25/17 17:06 Sodium 141.0 mmol/L (132-148) 09/25/17 17:06 Chloride 109.0 mmol/L (98-107) H 09/25/17 17:06 Glucose 94 mg/dL (65-105) 09/25/17 17:06 Lactate 0.9 mmol/L (0.7-2.1) 09/25/17 17:06 FiO2 21.0 % 09/25/17 17:06 Sodium 145 mmol/l (132-148) 09/26/17 05:50 Potassium 4.4 MMOL/L (3.6-5.0) 09/26/17 05:50 Chloride 105 mmol/L (98-107) 09/26/17 05:50 Carbon Dioxide 27 mmol/L (22-30) 09/26/17 05:50 Anion Gap 17 (10-20) 09/26/17 05:50 BUN 10 mg/dl (7-17) 09/26/17 05:50 Creatinine 1.2 mg/dl (0.7-1.2) 09/26/17 05:50 Est GFR ( Amer) 55 09/26/17 05:50 Est GFR (Non-Af Amer) 46 09/26/17 05:50 Random Glucose 100 mg/dL (65-105) 09/26/17 05:50 Calcium 8.9 mg/dL (8.4-10.2) 09/26/17 05:50 Total Bilirubin 0.6 mg/dl (0.2-1.3) 09/25/17 16:55 AST 31 U/L (14-36) 09/25/17 16:55 ALT 66 U/L (9-52) H D 09/25/17 16:55 Alkaline Phosphatase 74 U/L (38-126) 09/25/17 16:55 Total Protein 7.6 G/DL (6.3-8.2) 09/25/17 16:55 Albumin 3.9 g/dL (3.5-5.0) 09/25/17 16:55 Globulin 3.7 gm/dL (2.2-3.9) 09/25/17 16:55 Albumin/Globulin Ratio 1.1 (1.0-2.1) 09/25/17 16:55 Lipase 66 U/L (23-300) 09/25/17 16:55 Venous Blood Potassium 4.4 mmol/L (3.6-5.2) 09/25/17 17:06 Urine Color Yellow (YELLOW) 09/25/17 19:32 Urine Clarity Clear (Clear) 09/25/17 19:32 Urine pH 6.0 (5.0-8.0) 09/25/17 19:32 Ur Specific [place] 1.011 (1.003-1.030) 09/25/17 19:32 Urine Protein Negative mg/dL (NEGATIVE) 09/25/17 19:32 Urine Glucose (UA) Neg mg/dL (Normal) 09/25/17 19:32 Urine Ketones Negative mg/dL (NEGATIVE) 09/25/17 19:32 Urine Blood Negative (NEGATIVE) 09/25/17 19:32 Urine Nitrate Negative (NEGATIVE) 09/25/17 19:32 Urine Bilirubin Negative (NEGATIVE) 09/25/17 19:32 Urine Urobilinogen 0.2-1.0 mg/dL (0.2-1.0) 09/25/17 19:32 Ur Leukocyte Esterase Trace Raquel/uL (Negative) 09/25/17 19:32 Urine RBC (Auto) 3 /hpf (0-3) 09/25/17 19:32 Urine Microscopic WBC 1 /hpf (0-5) 09/25/17 19:32 Ur Squamous Epith Cells 1 /hpf (0-5) 09/25/17 19:32 Influenza Typ A,B (EIA) Negative for flu a/b (NEGATIVE) 09/25/17 20:30 Blood Type O POSITIVE 09/25/17 16:55 Antibody Screen Negative 09/25/17 16:55 BBK History Checked Patient has bt 09/25/17 16:55 - Hospital Course Hospital Course: 62 yo female with history of HTN diagnosed with Acute Cholecystitis and discharged 5 days ago after being managed conservatively with antibiotics came back because of RUQ pain associated with nausea. Denied vomiting, fever, chills or diarrhea.Us showed cholelithiasis. Surgery was consulted and patient taken to OR She underwent laparascopic cholecystectomy that revealed symptomatic cholelithiasis. Post op patient doing well , hemodynamically stable, afebrile, tolerating Po intake, passing flatus, voiding freely and ambulating . Denies any pain. Will d/c home with no antibiotics.Tylenol or Motrin PRN for pain. 1. Symptomatic cholelithiasiss S/P Laparoscopic Cholecystectomy will d/c home 2. HTN BP stable cxntinue lopsartan Discharge Exam - Head Exam Head Exam: ATRAUMATIC, NORMAL INSPECTION, NORMOCEPHALIC - Eye Exam Eye Exam: EOMI, PERRL Pupil Exam: NORMAL ACCOMODATION - ENT Exam ENT Exam: Mucous Membranes Moist, Normal Exam - Neck Exam Neck exam: Full Rom, Normal Inspection - Respiratory Exam Respiratory Exam: Clear to PA & Lateral, NORMAL BREATHING PATTERN, UNREMARKABLE - Cardiovascular Exam Cardiovascular Exam: REGULAR RHYTHM, RRR, +S1, +S2. absent: JVD - GI/Abdominal Exam GI & Abdominal Exam: Normal Bowel Sounds, Soft. absent: Distended, Guarding, Rebound, Tenderness - Rectal Exam Rectal Exam: Deferred - Extremities Exam Extremities exam: normal capillary refill, normal inspection, pedal pulses present - Back Exam Back exam: NORMAL INSPECTION - Neurological Exam Neurological exam: Alert, CN II-XII Intact - Psychiatric Exam Psychiatric exam: Normal Affect, Normal Mood - Skin Skin Exam: Dry, Intact, Normal Color, Warm Discharge Plan - Discharge Medications Prescriptions: oxyCODONE/Acetaminophen [Percocet 5/325 mg Tab] 1 ea PO Q6 PRN #20 tab PRN Reason: Pain, Severe (8-10) - Follow Up Plan Condition: STABLE Disposition: HOME/ ROUTINE Patient education suggested?: Yes Instructions: Gallstones (DC), Cholecystectomy, Laparoscopic Surgery Referrals: Kalpesh Roberts MD [Staff Provider] -
[2017-09-27 07:59] VITALS: BP 122/78; PULSE 78; RESP 20; TEMP 98.3; O2SAT 95
== END 2017-09-27 13:33 | disposition home or self-care (01) | DRG 419 ==
LOC: H.ER 14:12 → H.ERHOLD 18:31 → H.MEDSURG1 21:00
PROC: 0FT44ZZ Resection of Gallbladder, Percutaneous Endoscopic Approach (ICD-10-PCS; principal; 2017-09-26 10:00)
DX: K80.12 Calculus of gallbladder with acute and chronic cholecystitis without obstruction (principal); I10 Essential (primary) hypertension; E66.9 Obesity, unspecified; Z68.36 Body mass index [BMI] 36.0-36.9, adult; Z87.01 Personal history of pneumonia (recurrent); Z90.710 Acquired absence of both cervix and uterus